=== PATIENT | male | born 1940 | race Caucasian/White ===

== ENCOUNTER → 2023-11-29 16:28 | Outpatient (REF) | payer MEDICARE, SELFPAY | LOC: ANHLAB 16:28 | PROVIDERS: Visit Provider Physician Assistant Surgical | DX: C44.622 Squamous cell carcinoma of skin of right upper limb, including shoulder (principal) | CPT/HCPCS: 88305 ==

== ENCOUNTER → 2024-08-23 14:47 | Outpatient (REF) | payer MEDICARE, SELFPAY | LOC: ANHLAB 14:47 | PROVIDERS: Visit Provider Plastic Surgery | DX: C44.529 Squamous cell carcinoma of skin of other part of trunk (principal) | CPT/HCPCS: 88305 ==

== ENCOUNTER → 2024-09-17 11:11 | Outpatient (REF) | payer MEDICARE, SELFPAY | LOC: ANHLAB 11:11 | PROVIDERS: Visit Provider Plastic Surgery | DX: D48.5 Neoplasm of uncertain behavior of skin (principal) | CPT/HCPCS: 88305; 88342 ==

== ENCOUNTER → 2025-03-19 11:43 | Outpatient (REF) | payer MEDICARE, SELFPAY ==
--- NOTE | 2025-03-19 11:43 | S_PTH ---
PATIENT: Bryn Harrington LOC: [facility] #:[id number] AGE/SX: 85/M ROOM: RE03/19/[address]: Priti Marshall MD : 1940 BED: DIS: SPEC #: [id number] RECD: 03/19/25 12:04 STATUS: RANDALL ZHANG #: [id number] REHAN: 03/19/25 11:[address]: Priti Marshall DEPT: [facility] Surgical RECD BY: Jorge Luis Ignacio ENTERED: 03/19/25 12:05 SP TYPE: Surgical OTHR DR: UNKNOWN,DOCTOR Tissues: A - Skin Procedures: Hematoxylin and Eosin Stain Gross and Microscopic Level 4
--- OUTSIDE RECORDS SUMMARY | 2025-03-19 12:39 | XMS_ITS | Encounter Summary ---
Author Organization [facility] Healthcare Address [address] [place] [address] Care Team Providers Care Car Checker Name Role Phone Terrance Trejo MD Primary Care Provider Martin Montes MD Unavailable [phone] Jered Muñoz MD Unavailable [phone] Encounter Details Date Type Department Care Team (Late st Contact Info) Description 04/01/2022 Telephone [facility] [address] [place] [id number] Minal Larson, MISTY Social History Tobacco Use Types Packs/Day Years Used Date Smoking Tobacco: Some Days Cigars Smokeless Tobacco: Never Comments:3 a day Alcohol Use Standard Drinks/Week Comments Yes 0 (1 standard drink = 0.6 oz pur e alcohol) AUDIT-C Answer Date Recorded Q1: How often do you have a drink containing alc ohol? Never 02/11/2022 Average Number of Drinks Not on file 022 Q3: How often do you have si x or more drinks on one occasion? Never 02/11/2022 PHQ-2 Answer Date Recorded PHQ-2 Total Score (If total score is 3 or more points, staff should administer the PHQ-9) 0 11/10/2021 Sex and Gender Information Value Date Recorded Sex Assigned at Not on file Legal Sex Male 11:51 PM SHAKER TENDER Gender Identity Not on file Sexual Orientation Not on file documented as of this encounter Plan of Treatment Upcoming Encounters Date Type Department Care Team (Late st Contact Info) Description 10/10/2025 11:00 AM SHAKER TENDER Hospital Encounter [facility] [address] [place] [phone] Burton Solis MD [address] [place] [address] [address] [place] [address] 10/10/2025 11:00 AM SHAKER TENDER - 10/10/2025 11:30 AM SHAKER TENDER Surgery [facility] [address] [place] [address] Burton Solis MD [address] [place] [address] [address] [place] [address] COLONOSCOPY Scheduled Procedures Name Priority Associated Diagnoses Date/Ti me COLONOSCOPY History of colonic polyps 10/10/2025 11:00 AM SHAKER TENDER documented as of this encounter Visit Diagnoses Not on filedocumented in this encounter Additional Health Concerns Infection Onset Date Last Indicated Resolved Time COVID: Suspected 12/22/2022 12/22/2022 12/22/2022 12:00 PM CDT COVID: Suspected 12/27/2022 12/27/2022 12/27/2022 1:14 PM CDT documented as of this encounter Care Teams Car Checker Relationship Specialty Start Date End Date Terrance Trejo MD PCP - General 12/31/16 Martin Montes MD [address] [facility] [address] [place], [place] [id number] Clinic Office Coordinator Dermatology 10/30/21 Jered Muñoz MD [address] [place] [id number] Medical Oncologist/Director Sanitation [facility] Hematology and Oncology 02/10/23 documented as of this encounter
--- OUTSIDE RECORDS SUMMARY | 2025-03-19 12:39 | XMS_ITS | Clinical Summary ---
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 06/2021, 12/10/2019, Additional history exists Influenza Vaccine (Season Ended) 2025 Hemoglobin A1C 06/06/2025 12/04/2024, 09/0 03/2024, 03/26/2024, Additional history exists Prostate Cancer Screening-PSA 06/08/2025, 05/25/2023, 05/10/2022, Additional history exists Albumin Creatinine Ratio, Urine 12/04/2025 12/04/2024, 03/26/2024, 12/05/2023, Additional history exists Lipid Panel 12/04/2025 12/04/2024, 09/0 03/2024, 03/26/2024, Additional history exists eGFR 12/04/2025 12/04/2024, 09/02, 06/25/2024, Additional history exists Depression Screening 12/11/2025 12/11/2024, 06/12/2024, 03/26/2024, Additional history exists Fall Risk Assessment 12/11/2025 12/11/2024, 06/12/2024, 03/26/2024, Additional history exists Foot Exam 12/11/2025 12/11/2024, 06/03, 03/26/2024, Additional history exists Well Visit 65+ 12/11/2025 12/11/2024, 04/2024, 05/18/2022, Additional history exists Colon Cancer Screening-CT Colonography Discontinued 03/25/2022, 04/08/2016, 04/08/2016, Additional history exists Colon Cancer Screening-DNA Stool Discontinued 03/25/2022, 10/19/2017, 04/08/2016, Additional history exists Colon Cancer Screening-FIT Discontinued 03/25, 10/19/2017, 04/08/2016, Additional history exists Colon Cancer Screening-Sigmoidoscopy Discontinued 03/25/2022, 04/08/2016, 04/08/2016, Additional history exists Abdominal Aortic Aneurysm (A AA) Screen Completed 07/17/2024, 02/14/2024 Procedures Procedure Name Priority Date/Time Associated Diagnosis Comments CREATININE, WHOLE BLOOD STAT 03/15/2025 1:03 PM CDT EGFR Routine 12/04/2024 9:53 AM TRUST CLERK Type 2 diabetes mellitus with stage 3b chronic kidney disease, with long-term current use of insulin (HCC) HEMOGLOBIN A1C Routine 12/04/2024 9:53 AM TRUST CLERK Type 2 diabetes mellitus with stage 3b chronic kidney disease, with long-term current use of insulin (HCC) LIPID PANEL Routine 12/04/2024 9:53 AM TRUST CLERK Type 2 diabetes mellitus with stage 3b chronic kidney disease, with long-term current use of insulin (HCC) ALBUMIN CREATININE RATIO, URINE Routine 12/04/2024 9:53 AM TRUST CLERK Type 2 diabetes mellitus with stage 3b chronic kidney disease, with long-term current use of insulin (HCC) CT CHEST ABDOMEN PELVIS W CONTRAST Schedule Routine, Read Routine (OP Routine) 07/17/2024 2:11 PM CDT 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) PSA SCREEN Routine 06/08/2024 11:39 AM CDT Mixed hyperlipidemia Urine frequency DIABETIC EYE EXAM Routine 10/12/2023 COLONOSCOPY 03/25/2022 10:05 AM CDT DIABETES FOOT EXAM Routine 09/18/2019 from Last 3 Months or Most Recently Relevant to Health Maintenance Results * (ABNORMAL) Creatinine, whole blood (03/15/2025 1:03 PM CDT) Creatinine, bld 1.95(H) 0.60 - 1.30 mg/dL Blood 03/15/2025 1:03 PM CDT 03/15/2025 1:06 PM CDT us Dipak Funez MD LAB BLOOD ORDERABLES Jahaira l Result [facility] ([place]) 1 [facility] Department [place] [address] * (ABNORMAL) eGFR (12/04/2024 9:53 AM TRUST CLERK) eGFR 34(L) >=60 mL/min/1. 73 m2 Comment: Interpretive Data Reference Interval Normal >/= 90 mL/min/1.73m2 Mildly decreased* 60 - 89 mL/min/1.73m2 Mildly to moderately decreased 45 - 59 mL/min/1.73m2 Moderately to severely decreased 30 - 44 mL/min/1.73m2 Severely decreased 15 - 29 mL/min/1.73m2 Kidney Failure < 15 mL/min/1.73m2 *Relative to young adult level Estimated glomerular filtration rate is determined by the 2020 CKD-EPI equation recommended by the National Kidney Foundation (A Unifying Approach to GFR Estimation: Recommendations of the NKF-ASK Task Force on Reassessing the Inclusion of Race in Diagnosing Kidney Disease, JASN 2020). The CKD-EPI equation should not be used for patients with unstable renal function and has not been validated in children and those over 70. Current interpretive data was last reviewed 2021. Blood 12/04/2024 9:53 AM TRUST CLERK 12/04/2024 10:26 AM TRUST CLERK us Terrance Trejo MD LAB BLOOD ORDERABLES Fi nal Result Performing Organization Address [facility] Co de Phone Number [facility] ([place]) 1 [facility] [place] [address] * Albumin Creatinine Ratio, Urine (12/04/2024 9:53 AM TRUST CLERK) Albumin Ur <12.0 mg/L Comment: Interpretive Data No reference range established. Current interpretive data was last revised 2019. Testing performed by: [address] [address] Creatinine Ur 58.6 mg/dL [facility] ([place]) Comment: Interpretive Data No reference range established. Current interpretive data was last revised 2019. Testing performed by: [address] [address] Albumin Creatinine Ratio, Ur <20 1 - 29 mg/g [facility] ([place] Comment:Testing performed by : [facility], [address] [place] [address]., [address] Urine 12/04/2024 9:53 AM TRUST CLERK 12/04/2024 4:44 PM TRUST CLERK us Terrance Trejo MD LAB URINE ORDERABLES Fi nal Result Performing Organization Address [facility] Co de Phone Number [facility] ([place]) [address] [facility] [address] [place] [address] * (ABNORMAL) Hemoglobin A1c (12/04/2024 9:53 AM TRUST CLERK) Hgb A1C 9.4(H) 4.0 - 5.6 % Estimated Average Glucose 223 mg/dL [facility] ([place]) Comment: The ADA recommends reporting an estimated Average Glucose (eAG) with all Hemoglobin A1c results using the equation derived from a study of 507 normal and diabetic adults. Minority populations were underrepresented and children were not included. (Diabetes Care 31:8596-0761, 2008). The eAG is not equivalent to a fasting glucose. Blood 12/04/2024 9:53 AM TRUST CLERK 12/04/2024 10:26 AM TRUST CLERK us Terrance Trejo MD LAB BLOOD ORDERABLES Fi nal Result [facility] ([place]) 1 [facility] Department [place] [address] * (ABNORMAL) Lipid panel (12/04/2024 9:53 AM TRUST CLERK) Cholesterol 148 30 - 199 mg/dL Comment: Interpretive Data Ages < or = 19 years Acceptable: <170 mg/dL Borderline high: 170-199 mg/dL High: >or= 200 mg/dL Ages > or = 20 years Desirable: <200 mg/dL Borderline high: 200-239 mg/dL High: >or= 240 mg/dL Literature References: 1. Expert Panel on Integrated Guidelines for Cardiovascular Health and Risk Reduction in Children and Adolescents. Pediatrics 2011;128:S213 2. NCEP Expert Panel. Circulation 2004;110:227 Current Interpretive Data was last revised on 2018. Triglycerides 134 <=149 mg/dL [facility] ([place]) Comment: Interpretive Data Ages < or = 9 years Acceptable: <75 mg/dL Borderline high: 75-99 mg/dL High: >or= 100 mg/dL Ages 10 to 20 years Acceptable: <90 mg/dL Borderline high: 90-129 mg/dL High: >or= 130 mg/dL Ages > or = 20 years Desirable: <150 mg/dL Borderline high: 150-199 mg/dL High: 200-499 mg/dL Very high: >or= 499 mg/dL Literature References: 1. Expert Panel on Integrated Guidelines for Cardiovascular Health and Risk Reduction in Children and Adolescents. Pediatrics 2011;128:S213 2. NCEP Expert Panel. Circulation 2004;110:227 Current Interpretive Data was last revised on 2018. HDL 37(L) >=40 mg/dL [facility] ([place]) Comment: Interpretive Data Ages < or = 19 years Acceptable: >45 mg/dL Borderline low: 40-45 mg/dL Low: <40 mg/dL Ages > or = 20 years Desirable: >or= 60 mg/dL Low: <40 mg/dL Literature References: 1. Expert Panel on Integrated Guidelines for Cardiovascular Health and Risk Reduction in Children and Adolescents. Pediatrics 2011;128:S213 2. NCEP Expert Panel. Circulation 2004;110:227 Current Interpretive Data was last revised on 2018. LDL, calculated 87 <=129 mg/dL [facility] ([place]) Comment: Interpretive Data Ages < or = 19 years Acceptable: <110 mg/dL Borderline high: 110-129 mg/dL High: >or= 130 mg/dL Ages > or = 20 years Optimal: <100 mg/dL Near optimal: 100-129 mg/dL Borderline high: 130-159 mg/dL High: >160 mg/dL Calculated using the Keon LDL-C estimating equation. This equation was implemented on 2024. Prior to this date LDL-C was estimated using the Friedewald equation. Literature References: 1. Expert Panel on Integrated Guidelines for Cardiovascular Health and Risk Reduction in Children and Adolescents. Pediatrics 2011;128:S213 2. NCEP Expert Panel. Circulation 2004;110:227 3. Keon Hardy et al. RANI Cardiol. 2019January 31;5(5):540-548. doi: 10.1001/[email or web address].2020.0013 Current Interpretive Data was last revised on 2024. Non-HDL Cholesterol 111 mg/dL [facility] ([place]) Comment: Interpretive Data Ages < or = 19 years Acceptable: <120 mg/dL Borderline high: 120-144 mg/dL High: >145 mg/dL Ages > or = 20 years When triglycerides are >200 mg/dL, Non-HDL cholesterol is a secondary target of therapy with treatment goals that are 30 mg/dL greater than the LDL cholesterol target. Literature References: 1. Expert Panel on Integrated Guidelines for Cardiovascular Health and Risk Reduction in Children and Adolescents. Pediatrics 2011;128:S213 2. NCEP Expert Panel. Circulation 2004;110:227 Current Interpretive Data was last revised on 2018. Chol/HDL ratio 4 [facility] ([place]) Blood 12/04/2024 9:53 AM TRUST CLERK 12/04/2024 10:26 AM TRUST CLERK Narrative [facility] ([place]) - 12/04/2024 11:03 AM TRUST CLERK Has the patient been fasting for 8 hours or more?->Yes us Terrance Trejo MD LAB BLOOD ORDERABLES Fi nal Result [facility] ([place]) 1 [facility] Department [place] [address] * CT chest abdomen pelvis with contrast (07/17/2024 2:11 PM CDT) Anatomical Region Laterality Modality Body N/A Computed Tomogra phy 07/20/2024 2:51 PM CDT Narrative 07/20/2024 2:59 PM CDT EXAM DESCRIPTION: CT CHEST ABDOMEN PELVIS W CONTRAST REASON FOR STUDY: History of Follicular lymphoma to bilateral tonsillar mass, s/p excision. Assess for recurrence or disease progression. 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 Reconstructed coronal and sagittal MPR images reviewed. All images stored on PACS. Automated exposure control was used as a dose optimization technique for this examination. CONTRAST TYPE/DOSE: 75mL of IOVERSOL 350 MG IODINE/ML INTRAVENOUS SYRINGE injected via intravenous COMPARISON: No prior chest CT. Limited correlation with a CT angiogram runoff 02/14/2024. thyroid ultrasound 03/30/2022. FDG PET-CT 03/31/2022. FINDINGS: CHEST LUNGS: Central airways are patent. No suspicious pulmonary nodule or mass. Small area of scarring or atelectasis in the anterolateral left lower lobe. PLEURA: No pleural effusion or pneumothorax. MEDIASTINUM/FARHANA: No mediastinal or hilar mass. There is an extension right posteriorly from the thyroid gland which appears to be an area of nodularity with coarse calcification, 3.1 x 2.1 cm. Please see the previous ultrasound and FNA, with an FNA performed 04/20/2022. HEART: Heart size is normal. No pericardial effusion. VASCULATURE CHEST: The thoracic aorta is nonaneurysmal, ascending thoracic aorta 3.8 cm, descending thoracic aorta 2.5 cm. AXILLA: No axillary lymphadenopathy. CHEST WALL: No chest wall mass or subcutaneous emphysema. HARDWARE/LINES/TUBES: None. MUSCULOSKELETAL CHEST: Bone windows demonstrate no acute or aggressive osseous abnormality. ABDOMEN/PELVIS LIVER: No focal hepatic lesion. The liver size and contour normal. Portal and hepatic veins are patent. GALLBLADDER: No gallstones or overt inflammatory change. BILE DUCTS: No biliary ductal dilation. SPLEEN: Spleen size normal. No focal lesion. PANCREAS: No pancreatic mass or inflammatory change. ADRENALS: Normal KIDNEYS/URINARY TRACT: Mild bilateral perinephric stranding. No renal calculi or hydronephrosis. There is a small lesion from the right kidney anteriorly 0.8 cm 48 Hounsfield units, indeterminate. Continued attention this on follow-up imaging would be recommended. No ureteral calculi. There is mild wall thickening of the urinary bladder. The prostate does impress upon the urinary bladder base. GI: No evidence of bowel obstruction. The terminal ileum is normal. The appendix is normal. The stomach and duodenal are normal. There is no pneumatosis. No abnormal bowel wall thickening. PERITONEUM: No ascites or free air. No mesenteric mass or lymphadenopathy. RETROPERITONEUM: No retroperitoneal mass or lymphadenopathy. REPRODUCTIVE: No significant abnormalities. VASCULATURE ABDOMEN: Abdominal aorta nonaneurysmal. Atheromatous calcification of the abdominal aorta. MUSCULOSKELETAL ABDOMEN PELVIS: Bone windows demonstrate no acute or aggressive osseous abnormality. Mild degenerative change throughout the thoracic and lumbar spine. OTHER: No significant abnormality. IMPRESSION: No evidence of metastatic disease within the chest, abdomen, or pelvis. Indeterminate right renal lesion 0.8 cm, could consider attempted characterization with renal mass protocol MRI although this is likely too small for definitive characterization will likely need continued follow-up imaging. Might consider follow-up imaging in 6 months. Mild wall thickening of the urinary bladder, correlation with urinalysis recommended. Right thyroid nodule 3.1 cm, please see previous thyroid ultrasound and correlate with previous FNA results. THIS IS AN ELECTRONICALLY VERIFIED FINAL REPORT 07/20/2024 2:59 PM - Electronically signed by Maximino Whalen M.D. CH: MELO Report ID: [id number] Reading Location: [id number] Procedure Note Maximino Whalen Jr., MD - 07/20/2024 EXAM DESCRIPTION: CT CHEST ABDOMEN PELVIS W CONTRAST REASON FOR STUDY: History of Follicular lymphoma to bilateral tonsillarmass, s/p excision. Assess for recurrence or disease progression. 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 Reconstructed coronal and sagittalMPR images reviewed. All images stored on PACS. Automated exposure control was used as a dose optimization technique for this examination. CONTRAST TYPE/DOSE: 75mL of IOVERSOL 350 MG IODINE/ML INTRAVENOUS SYRINGE injected via intravenous COMPARISON: No prior chest CT. Limited correlation with a CT angiogramrunoff 02/14/2024. thyroid ultrasound 03/30/2022. FDG PET-CT 03/31/2022. FINDINGS: CHEST LUNGS: Central airways are patent. No suspicious pulmonary nodule ormass. Small area of scarring or atelectasis in the anterolateral left lowerlobe. PLEURA: No pleural effusion or pneumothorax. MEDIASTINUM/FARHANA: No mediastinal or hilar mass. There is an extensionright posteriorly from the thyroid gland which appears to be an area ofnodularity with coarse calcification, 3.1 x 2.1 cm. Please see the previousultrasound and FNA, with an FNA performed 04/20/2022. HEART: Heart size is normal. No pericardial effusion. VASCULATURE CHEST: The thoracic aorta is nonaneurysmal, ascendingthoracic aorta 3.8 cm, descending thoracic aorta 2.5 cm. AXILLA: No axillary lymphadenopathy. CHEST WALL: No chest wall mass or subcutaneous emphysema. HARDWARE/LINES/TUBES: None. MUSCULOSKELETAL CHEST: Bone windows demonstrate no acute or aggressive osseous abnormality. ABDOMEN/PELVIS LIVER: No focal hepatic lesion. The liver size and contour normal.Portal and hepatic veins are patent. GALLBLADDER: No gallstones or overt inflammatory change. BILE DUCTS: No biliary ductal dilation. SPLEEN: Spleen size normal. No focal lesion. PANCREAS: No pancreatic mass or inflammatory change. ADRENALS: Normal KIDNEYS/URINARY TRACT: Mild bilateral perinephric stranding. No renal calculi or hydronephrosis. There is a small lesion from the right kidney anteriorly 0.8 cm 48 Hounsfield units, indeterminate. Continued attention this on follow-up imaging would be recommended. No ureteral calculi.There is mild wall thickening of the urinary bladder. The prostate does impress upon the urinary bladder base. GI: No evidence of bowel obstruction. The terminal ileum is normal.The appendix is normal. The stomach and duodenal are normal. There is no pneumatosis. No abnormal bowel wall thickening. PERITONEUM: No ascites or free air. No mesenteric mass orlymphadenopathy. RETROPERITONEUM: No retroperitoneal mass or lymphadenopathy. REPRODUCTIVE: No significant abnormalities. VASCULATURE ABDOMEN: Abdominal aorta nonaneurysmal. Atheromatous calcification of the abdominal aorta. MUSCULOSKELETAL ABDOMEN PELVIS: Bone windows demonstrate no acute or aggressive osseous abnormality. Mild degenerative change throughout the thoracic and lumbar spine. OTHER: No significant abnormality. IMPRESSION: No evidence of metastatic disease within the chest, abdomen, or pelvis. Indeterminate right renal lesion 0.8 cm, could consider attempted characterization with renal mass protocol MRI although this is likely too small for definitive characterization will likely need continued follow-up imaging. Might consider follow-up imaging in 6 months. Mild wall thickening of the urinary bladder, correlation with urinalysis recommended. Right thyroid nodule 3.1 cm, please see previous thyroid ultrasound and correlate with previous FNA results. THIS IS AN ELECTRONICALLY VERIFIED FINAL REPORT 07/20/2024 2:59 PM - Electronically signed by Maximino Whalen M.D. CH: MELO Report ID: [id number] Reading Location: [id number] Elida Woods NP IMG CT PROCEDURES Final Re sult * PSA screen (06/08/2024 11:39 AM CDT) PSA-Total <0.10 <=6.20 ng/mL Comment: Interpretive Data AGE SEX REFERENCE INTERVAL 0 minutes-150 years Female None 0 minutes-49 years Male None 50-59 years Male 0-3.90 60-69 years Male 0-5.40 70-79 years Male 0-6.20 80-150 years Male 0-6.20 The Majo PSA Total assay procedure was used. Results from different manufacturers or methods may not be comparable. Serial testing should be performed using the same method. Current interpretive data last revised 22. Blood 06/08/2024 11:3 9 AM CDT 06/08/2024 12:17 PM CDT Terrance Trejo MD LAB BLOOD ORDERABLES nal Result [facility] ([place]) 1 [facility] Department of Laboratories [place], [place] [id number] * (ABNORMAL) Diabetic Eye Exam (10/12/2023) 10/12/2023 us Generic External Data Provider HEALTH MAINTENANC E Final Result * COLONOSCOPY (03/25/2022 10:05 AM CDT) Anatomical Region Laterality Modality Other Narrative Procedure Note Lele Villalobos MD - 03/25/2022 10:05 AM CDT [facility] Patient Name: Judd Harrington Procedure Date: 03/25/2022 10:05 AM Date of : 1940 Admit Type: Outpatient Age: 81 Gender: Male Attending MD: Lele Villalobos M.D. Room: [facility] ENDOSCOPY ROOM 2 Note Status: Finalized Patient Profile: Refer to note in patient chart for documentation of history and physical. Procedure: Colonoscopy Indications: Last colonoscopy: April 2016, Abnormal PET scan ofthe GI tract Referring MD: Terrance Trejo M.D. Providers: Lele Villalobos M.D. Impression: - Hemorrhoids found on perianal exam. - Six 4 to 6 mm polyps in the descending colon, inthe transverse colon and in the ascending colon,removed with a cold snare. Resected and retrieved. - Small lipoma in the ascending colon. - The examination was otherwise normal. Recommendation: - Discharge patient to home. - Resume previous diet. - Continue present medications. - Await pathology results. - Repeat colonoscopy in 3 years for surveillance. - Return to primary care physician as previously scheduled. Medicines: Propofol per Anesthesia Complications: No immediate complications. Estimated Blood Loss: Estimated blood loss: none. Procedure: Pre-Anesthesia Assessment: - This assessment was completed [Time ofAssessment] prior to the administration of sedation. The benefits, risks and alternatives of theprocedure and sedation were discussed and informed consentwas obtained. All questions were answered. Please referto the signed informed consent document in the medical record. The bowel preparation used was Miralax via single dose instruction. The bowel preparation used was bisacodyl tablets via single dose instruction.The scope was passed under direct vision. TheColonoscope [id number] was introduced through the anus and advanced to the the cecum, identified by appendiceal orifice and ileocecal valve. The colonoscopy was performed without difficulty. The patient tolerated the procedure well. The qualityof the bowel preparation was good. The ileocecalvalve, appendiceal orifice, and rectum werephotographed. Findings: Hemorrhoids were found on perianal exam. Six sessile polyps were found in the descending colon(2), transverse colon(1) and ascending colon(3). The polyps were 4 to 6 mm in size. These polyps were removed with a cold snare. Resection and retrieval were complete. Verification of patient identification for thespecimen was done by the physician and nurse using the patient's name andbirth date. Estimated blood loss was minimal. There was a small lipoma, in the ascending colon. The exam was otherwise without abnormality. Electronically signed by Lele Villalobos M.D. Lele Villalobos M.D. 03/25/2022 11:49:56 AM Number of Addenda: 0 Note Initiated On: 03/25/2022 10:05 AM Procedure Code(s): --- Professional --- 25915, Colonoscopy, flexible; with removal of tumor(s), polyp(s), or other lesion(s) by snare technique Diagnosis Code(s): --- Professional --- R93.3, Abnormal findings on diagnostic imaging of other parts of digestive tract D17.5, Benign lipomatous neoplasm of intra-abdominal organs D12.2, Benign neoplasm of ascending colon D12.3, Benign neoplasm of transverse colon (hepatic flexure orsplenic flexure) D12.4, Benign neoplasm of descending colon K64.9, Unspecified hemorrhoids CPT copyright 2020 [employer]. All rights reserved. The codes documented in this report are preliminary and upon scalp specialist reviewmay be revised to meet current compliance requirements. Recognized by the [employer] for promoting quality in endoscopy Lele Villalobos MD ENDOSCOPY PROCEDURES Final Re sult * DIABETES FOOT EXAM (09/18/2019) Diabetic Foot Exam Abnormal Historical Provider HEALTH MAINTENANCE Final Result from Last 3 Months or Most Recently Relevant to Health Maintenance Insurance [facility] H[facility]/PPO Address: [address] [address] [place] [address] [employer] MEDICARE MEDICARE [facility] Address: [address] [address] [place] [address] [facility] CHOICE [facility]US [facility] HMO/PPO Address: [address] [address] [place] [address] [facility] MED[facility] Advance Directives For more information, please contact: [phone] * Full Code (Latest Code Status on File) Date Activated Date Inactivated Comments 03/13/2024 7:41 PM 03/14/2024 4:52 PM * Full Code Date Activated Date Inactivated Comments 03/25/2022 9:54 AM 03/25/2022 5:15 PM * Full Code Date Activated Date Inactivated Comments 03/25/2022 9:54 AM 03/25/2022 9:54 AM Care Teams Wool Spotter Relationship Specialty Start Date End Date Terrance Trejo MD PCP - General 12/31/16 Martin Montes MD [address] [facility] Press Operator [place] [facility] 10/30/21 Jered Muñoz MD [address] [place] [address] Medical Oncologist/Grievance Coordinator Hematology and Oncology 02/10/23
--- OUTSIDE RECORDS SUMMARY | 2025-03-19 12:39 | XMS_ITS | Referral Summary ---
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) Discharge Disposition: Discharge to home or self care 03/14/[address] [address] Norma Concetta Jose Rafael 03/12/2025 Telephone [facility] G[facility]enterology at [address] [place] [phone] Yue John from Last 3 Months Allergies No known active allergies Medications multivitamin [...] (03/23/2022): Added automatically from request for surgery [id number] Grade 1 follicular lymphoma of lymph nodes [...] (12/14/2021): Added automatically from request for surgery [id number] Squamous cell carcinoma of right lower leg [...] day Assessment & Plan (11/09/2022 1:33 PM SPORTS ADMINISTRATOR): This is a chronic condition which is [...] CVA,PAD. Assessment & Plan (09/08/2021 1:31 PM SPORTS ADMINISTRATOR): This is a chronic condition which is [...] sugars. Close to goal. Personally reviewed A1c-8.2 (10.07.20). POC A1C machine not functioning. Will wait [...] daily, at goal <30 Personally reviewed labs: (10/07/20) BUN- 22, creatinine- 1.37 GFR- 49 Kidney function- abnormal B/P today- 124/78 , currently on lisinopril 5mg daily, at goal blood pressure is <140/90 and as close to 120/80 as possible. Personally reviewed (10/07/20) LDL - 65, currently on atorvastatin 10 mg daily, at Goal of less than 70 history of macrovascular disease - CVA,PAD. Assessment & Plan (10/30/2020 1:59 PM SPORTS ADMINISTRATOR): This is a chronic condition which is [...] with some relief Continue with exercise at [facility]. history of macrovascular disease - CVA Multiple-type hyperlipidemia 02/16/2014 Overview (01/06/2017): MIXED HYPERLIPIDEMIA Assessment & Plan (11/09/2022 1:34 PM SPORTS ADMINISTRATOR): This is a chronic condition which is [...] day Assessment & Plan (11/09/2022 1:34 PM SPORTS ADMINISTRATOR): This is a chronic condition which is [...] appt. Assessment & Plan (09/08/2021 1:32 PM SPORTS ADMINISTRATOR): This is a chronic condition which is [...] (01/07/2017): DM w/o complication type II, uncontrolled Immunizations Immunization Administration Dates Next Due Influenza, Unspecified 12/11/2024(Deferr ed: Patient Refused),06/12/2024(Deferred: Patient Refused),08/08/2023(Deferred: Patient Refused),07/03/2021(Deferred: Patient Refused),07/03/2020(Deferred: Patient Refused),07/03/2019(Deferred: Patient Refused),07/03/2018(Deferred: Patient Refused) [employer] SARS-CoV-2 Vaccination 12/06/2020 Pneumococcal Conjugate PCV 13 07/03/2020 (Deferred: Patient Refused),04/16/2019(Deferred: Patient Refused) Pneumococcal Polysaccharide PPV23 05/18/2022(Def erred: Patient Refused) Social History Tobacco Use Types Packs/Day Years [...] on file Legal Sex Male 11:51 PM SPORTS ADMINISTRATOR Gender Identity Not on file Sexual Orientation Not on file Last Filed Vital Signs Vital Sign Reading [...] st Contact Info) Description 10/10/2025 11:00 AM SPORTS ADMINISTRATOR Hospital Encounter [address] [address]Burton Chino MD [address] [facility] [place] [address] 10/10/2025 11:00 AM SPORTS ADMINISTRATOR - 10/10/2025 11:30 AM SPORTS ADMINISTRATOR Surgery [address] [address]Burton Chino MD [address] [facility] [place] [address] COLONOSCOPY Scheduled Procedures Name Priority Associated Diagnoses Date/Ti me COLONOSCOPY History of colonic polyps 10/10/2025 11:00 AM SPORTS ADMINISTRATOR Procedures Procedure Name Priority Date/Time Associated Diagnosis Comments CREATININE, WHOLE BLOOD STAT 03/15/2025 1:03 PM CDT EGFR Routine 12/04/2024 9:53 AM SPORTS ADMINISTRATOR Type 2 diabetes mellitus with stage 3b chronic kidney disease, with long-term current use of insulin (HCC) HEMOGLOBIN A1C Routine 12/04/2024 9:53 AM SPORTS ADMINISTRATOR Type 2 diabetes mellitus with stage 3b chronic kidney disease, with long-term current use of insulin (HCC) LIPID PANEL Routine 12/04/2024 9:53 AM SPORTS ADMINISTRATOR Type 2 diabetes mellitus with stage 3b chronic kidney disease, with long-term current use of insulin (HCC) ALBUMIN CREATININE RATIO, URINE Routine 12/04/2024 9:53 AM SPORTS ADMINISTRATOR Type 2 diabetes mellitus with stage 3b [...] LAB BLOOD ORDERABLES Jahaira l Result PRITESH NAS[facility] [place]) 1 [facility] [place] [address] * (ABNORMAL) eGFR (12/04/2024 9:53 AM SPORTS ADMINISTRATOR) eGFR 34(L) >=60 mL/min/1. 73 m2 Comment: [...] last reviewed 2021. Blood 12/04/2024 9:53 AM SPORTS ADMINISTRATOR 12/04/2024 10:26 AM SPORTS ADMINISTRATOR Terrance Trejo MD LAB BLOOD ORDERABLES nal Result PRITESH NASH ([place] 1 [facility] Department [place] [address] * Albumin Creatinine Ratio, Urine (12/04/2024 9:53 AM SPORTS ADMINISTRATOR) Albumin Ur <12.0 mg/L Comment: Interpretive Data No reference range established. Current interpretive data was last revised 2019. Testing performed by: [address] [address] Creatinine Ur 58.6 mg/dL PRITESH NASH ([place]) Comment: Interpretive Data No reference range established. Current interpretive data was last revised 2019. Testing performed by: [address] [address] Albumin Creatinine Ratio, Ur <20 1 - 29 mg/g PRITESH NASH ([place]) Comment:Testing performed by : [address] [address] Urine 12/04/2024 9:53 AM SPORTS ADMINISTRATOR 12/04/2024 4:44 PM SPORTS ADMINISTRATOR Terrance Trejo MD LAB URINE ORDERABLES Fi nal Result Performing Organization Address [facility] Co de Phone Number PRITESH NASH ([place]) 1 [facility] [place] [address] * (ABNORMAL) Hemoglobin A1c (12/04/2024 9:53 AM SPORTS ADMINISTRATOR) Hgb A1C 9.4(H) 4.0 - 5.6 % Estimated Average Glucose 223 mg/dL [facility]IT[facility] ([place]) Comment: The ADA recommends reporting an estimated Average Glucose (eAG) with all Hemoglobin A1c results using the equation derived from a study of 507 normal and diabetic adults. Minority populations were underrepresented and children were not included. (Diabetes Care 31:8581-8522, 2008). The eAG is not equivalent to a fasting glucose. Blood 12/04/2024 9:53 AM SPORTS ADMINISTRATOR 12/04/2024 10:26 AM SPORTS ADMINISTRATOR Terrance Trejo MD LAB BLOOD ORDERABLES Fi nal Result Performing Organization Address [facility] de Phone Number PRITESH NASH ([place]) [address] [place] [address] * (ABNORMAL) Lipid panel (12/04/2024 9:53 AM SPORTS ADMINISTRATOR) Cholesterol 148 30 - 199 mg/dL Comment: [...] on 2018. Triglycerides 134 <=149 mg/dL PRIT[facility] ([place]) Comment: Interpretive Data Ages < or [...] NCEP Expert Panel. Circulation 2004;110:227 3. Keon Rodriguez al. RANI Cardiol. 2020 January 31;5(5):540-548. doi: 10.1001/jamacardio.2020.0013 Current Interpretive Data was last revised on 2024. Non-HDL Cholesterol 111 mg/dL [facility] ([place]) Comment: Interpretive Data Ages < or [...] last revised on 2018. Chol/HDL ratio 4 [facility]ERMIRTHA Elise [facility] ([place]) Blood 12/04/2024 9:53 AM SPORTS ADMINISTRATOR 12/04/2024 10:26 AM SPORTS ADMINISTRATOR Narrative PRITESH NASH ([place]) - 12/04/2024 11:03 AM SPORTS ADMINISTRATOR Has the patient been fasting for 8 hours or more?->Yes Terrance Trejo MD LAB BLOOD ORDERABLES Fi nal Result PRITESH NASH ([place]) 1 [facility] Department of Laboratories [place], [place] [id number] * CT chest abdomen pelvis with contrast [...] Electronically signed by Maximino Whalen M.D. CH: Report ID: [id number] Reading Location: [id number] Procedure Note Maximino Whalen Jr., MD - [...] Electronically signed by Maximino Whalen M.D. CH: Report ID: [id number] Reading Location: [id number] us [place] HAIR CLIPPER POWER IMG CT PROCEDURES Final Re sult * [...] 9 AM CDT 06/08/2024 12:17 PM CDT us Terrance Trejo MD LAB BLOOD ORDERABLES Fi nal Result [facility] ([place]) 5 [facility] [place] [address] * (ABNORMAL) Diabetic Eye Exam (10/12/2023) 10/12/2023 us Generic External Data Provider HEALTH MAINTENANC E Final Result * COLONOSCOPY (03/25/2022 10:05 AM CDT) Anatomical Region Laterality Modality Other Narrative Procedure Note Lele Villalobos MD - 03/25/2022 10:05 AM CDT [facility] Patient Name: Judd Harrington Procedure Date: 03/25/2022 10:05 AM Date of : 1940 Admit Type: Outpatient Age: 81 Gender: Male Attending MD: Lele Villalobos M.D. Room: [facility] ENDOSCOPY ROOM 2 Note Status: Finalized Patient [...] scope was passed under direct vision. TheColonoscope [id number] was introduced through the anus and advanced [...] 10:05 AM Procedure Code(s): --- Professional --- 37969, Colonoscopy, flexible; with removal of tumor(s), polyp(s), [...] colon K64.9, Unspecified hemorrhoids CPT copyright 2020 [employer]. All rights reserved. The codes documented in this report are preliminary and upon primer powder blender wet reviewmay be revised to meet current compliance requirements. Recognized by the [employer] [place] for promoting quality in endoscopy Lele Villalobos MD ENDOSCOPY PROCEDURES Final Re sult * DIABETES FOOT EXAM (09/18/2019) Diabetic Foot Exam Abnormal Historical Provider MD HEALTH MAINTENANCE Final Result from Last 3 Months or Most Recently Relevant to Health Maintenance Insurance [facility] AETNA MEDICARE [facility] PLUS [facility] MEDICARE Advance Directives For more information, please contact: [phone] * Full Code (Latest Code Status on File) Date Activated Date Inactivated Comments 03/13/2024 7:41 PM 03/14/2024 4:52 PM * Full Code Date Activated Date Inactivated Comments 03/25/2022 9:54 AM 03/25/2022 5:15 PM * Full Code Date Activated Date Inactivated Comments 03/25/2022 9:54 AM 03/25/2022 9:54 AM Care Teams Cook Barbecue Relationship Specialty Start Date End Date Terrance Trejo MD PCP - General 12/31/16 Martin Montes MD [address] [place] [address] Policy And Planning Manager Dermatology 10/30/21 Jered Muñoz MD [address] [place] [address] Medical Oncologist/Straight Slicing Machine Operator Hematology and Oncology 02/10/23
--- OUTSIDE RECORDS SUMMARY | 2025-03-19 12:39 | XMS_ITS | Encounter Summary ---
Author Organization [facility] Address [address] [place] [address] Phone Care Team Providers Care Chief Arson Division Name Role Phone Terrance Trejo MD Primary Care Provider George Blackwell LPN Unavailable Unavail able Martin Montes MD Unavailable [phone] Jered Muñoz MD Unavailable [phone] Encounter Details Date Type Department Care Team (Late st Contact Info) Description 09/16/2017 Orders Only [facility] ProviderTherese MD [address] [place], [place] [id number] Social History Tobacco Use Types Packs/Day Years Used Date Smoking Tobacco: Smoker, Current Status Unknown Alcohol Use Standard Drinks/Week Comments Yes 0 (1 standard drink = 0.6 oz pur e alcohol) Sex and Gender Information Value Date Recorded Sex Assigned at Not on file Legal Sex Male 11:51 PM OIL HEAT TECHNICIAN Gender Identity Not on file Sexual Orientation Not on file documented as of this encounter Plan of Treatment Upcoming Encounters Date Type Department Care Team (Late st Contact Info) Description 10/10/2025 11:00 AM OIL HEAT TECHNICIAN Hospital Encounter [address] [address] Burton Solis MD [address] [place] [address] [place] [address] 10/10/2025 11:00 AM OIL HEAT TECHNICIAN - 10/10/2025 11:30 AM OIL HEAT TECHNICIAN Surgery [address] [address] Burton Solis MD [address] [place] [address] [address] [place] [address] COLONOSCOPY Scheduled Procedures Name Priority Associated Diagnoses Date/Ti me COLONOSCOPY History of colonic polyps 10/10/2025 11:00 AM OIL HEAT TECHNICIAN documented as of this encounter Procedures Procedure Name Priority Date/Time Associated Diagnosis Comments DISCHARGE LABORATORY CUMULATIVE REPORT 09/16/2017 12:00 AM OIL HEAT TECHNICIAN documented in this encounter Results * DISCHARGE LABORATORY CUMULATIVE REPORT (09/16/2017 12:00 AM OIL HEAT TECHNICIAN) Narrative 09/16/2017 12:00 AM OIL HEAT TECHNICIAN Ordered by an unspecified provider. us Historical Provider LAB BLOOD ORDERABLES Jahaira l Result documented in this encounter Visit Diagnoses Not on filedocumented in this encounter Additional Health Concerns Infection Onset Date Last Indicated Resolved Time COVID: Suspected 12/22/2022 12/22/2022 12/22/2022 12:00 PM CDT COVID: Suspected 12/27/2022 12/27/2022 12/27/2022 1:14 PM CDT documented as of this encounter Care Teams Chief Arson Division Relationship Specialty Start Date End Date Terrance Trejo MD PCP - General 12/31/16 George Blackwell LPN Care Manager 12/21/17 12/27/17 Martin Montes MD [address] [facility] [place] [phone] Blowing Engineer Dermatology 10/30/21 Jered Muñoz MD [address] [facility] [place] [phone] Medical Oncologist/Tool Salvage Worker Hematology and Oncology 02/10/23 documented as of this encounter
--- OUTSIDE RECORDS SUMMARY | 2025-03-19 12:39 | XMS_ITS | Encounter Summary ---
Author Organization [facility] Address [address] [place] [address] Care Team Providers Care Director Corporate Compliance Name Role Phone Terrance Trejo MD Primary Care Provider Martin Montes MD Unavailable [phone] Jered Muñoz MD Unavailable [phone] Encounter Details Date Type Department Care Team (Late st Contact Info) Description 04/02/2022 Telephone [facility] [address] [place] [address] Minal Larson, MISTY Social History Tobacco Use [...] on file Legal Sex Male 11:51 PM BATH MIXER Gender Identity Not on file Sexual Orientation Not on file documented as of this encounter Plan of Treatment Upcoming Encounters Date Type Department Care Team (Late st Contact Info) Description 10/10/2025 11:00 AM BATH MIXER Hospital Encounter [facility] [address] [place] [address] Burton Solis MD [address] [place] [address] [address] [place] [address] 10/10/2025 11:00 AM BATH MIXER - 10/10/2025 11:30 AM BATH MIXER Surgery [facility] Digestive [facility] Center [address] [place] [address] Burton Solis MD [address] [place] [address] [address] [place] [address] COLONOSCOPY Scheduled Procedures Name Priority Associated Diagnoses Date/Ti me COLONOSCOPY History of colonic polyps 10/10/2025 11:00 AM BATH MIXER documented as of this encounter Visit Diagnoses Not on filedocumented in this encounter Additional Health Concerns Infection Onset Date Last Indicated Resolved Time COVID: Suspected 12/22/2022 12/22/2022 12/22/2022 12:00 PM CDT COVID: Suspected 12/27/2022 12/27/2022 12/27/2022 1:14 PM CDT documented as of this encounter Care Teams Director Corporate Compliance Relationship Specialty Start Date End Date Terrance Trejo MD PCP - General 12/31/16 Martin Montes MD [address] [facility] [address] [place], [place] [phone] Cracker Sprayer Dermatology 10/30/21 Jered Muñoz MD [address] [facility] [place] [phone] Medical Oncologist/Rf Microwave Engineer Hematology and Oncology 02/10/23 documented as of this encounter
== END ==
LOC: ANHLAB 11:43
PROVIDERS: Visit Provider Plastic Surgery
DX: C44.629 Squamous cell carcinoma of skin of left upper limb, including shoulder (principal)
CPT/HCPCS: 88305

== ENCOUNTER → 2025-04-02 15:35 | Outpatient (REF) | payer MEDICARE, SELFPAY ==
--- NOTE | 2025-04-02 15:35 | S_PTH ---
PATIENT: Bryn Harrington LOC: ANHLAB #:[id number] AGE/SX: 85/M ROOM: RE04/02/[address]: Priti Marshall MD : 1940 BED: DIS: SPEC #: [id number] RECD: 04/03/25 06:29 STATUS: RANDALL ZHANG #: [id number] REHAN: 04/02/25 15:[address]: Priti Marshall DEPT: [facility] Surgical RECD BY: Geovanna Sandoval ENTERED: 04/03/25 06:29 SP TYPE: Surgical OTHR DR: UNKNOWN,DOCTOR Tissues: A - Skin Procedures: Hematoxylin and Eosin Stain Gross and Microscopic Level 4
--- OUTSIDE RECORDS SUMMARY | 2025-04-02 15:37 | XMS_ITS | Referral Summary ---
Author Organization [facility] Address [address] [place] [address] Care Team Providers Care Clinical Trials Nurse Name Role Phone Terrance Trejo MD Primary Care Provider Martin Montes MD Unavailable [phone] Jered Muñoz MD Unavailable [phone] Encounters Date Type Department Care Team Description 03/21/2025 2:15 PM CDT Lab [facility] [place] [address] 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) Discharge Disposition: Discharge to home or self care 03/14/[address] [address] Concetta [place] 03/12/2025 Telephone [facility] Gastroenterology at [address] [place] [address] Yue John from Last 3 Months Allergies [...] (03/23/2022): Added automatically from request for surgery [id number] Grade 1 follicular lymphoma of lymph nodes [...] (12/14/2021): Added automatically from request for surgery [id number] Squamous cell carcinoma of right lower leg [...] day Assessment & Plan (11/09/2022 1:33 PM WEB SITE SPECIALIST): This is a chronic condition which is [...] CVA,PAD. Assessment & Plan (09/08/2021 1:31 PM WEB SITE SPECIALIST): This is a chronic condition which is [...] CVA,PAD. Assessment & Plan (10/30/2020 1:59 PM WEB SITE SPECIALIST): This is a chronic condition which is [...] with some relief Continue with exercise at [facility]. 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 See Poloititian. Please take medications as prescribed. Continue on [...] day Assessment & Plan (11/09/2022 1:34 PM WEB SITE SPECIALIST): This is a chronic condition which is [...] appt. Assessment & Plan (09/08/2021 1:32 PM WEB SITE SPECIALIST): This is a chronic condition which is [...] Refused),07/03/2020(Deferred: Patient Refused),07/03/2019(Deferred: Patient Refused),07/03/2018(Deferred: Patient Refused) Section 101 (J&J) SARS-CoV-2 Vaccination 12/06/2020 Pneumococcal Conjugate PCV [...] on file Legal Sex Male 11:51 PM WEB SITE SPECIALIST Gender Identity Not on file Sexual Orientation Not on file Last Filed Vital Signs Vital Sign Reading Time Taken Comments Blood Pressure 144/78 03/21/2025 2:09 PM CDT Pulse 82 03/21/2025 2:09 PM CDT Temperature 36.3 C (97.3 F) 03/21/2025 2:09 PM CDT Respiratory Rate 20 03/21/2025 2:09 PM CDT Oxygen Saturation 95% 03/21/2025 2:09 PM CDT Inhaled Oxygen Concentration - - Weight 99 kg (218 lb 3.2 oz) 03/21/2025 2:09 PM CDT Height 177.8 cm (5' 10) 03/21/2025 2:09 PM CDT Body Mass Index 31.31 03/21/2025 2:09 PM CDT Plan of Treatment Upcoming Encounters Date Type Department Care Team (Late st Contact Info) Description 10/10/2025 11:00 AM WEB SITE SPECIALIST Hospital Encounter [address] [phone] Chino MD [address] [place] [address] 10/10/2025 11:00 AM WEB SITE SPECIALIST - 10/10/2025 11:30 AM WEB SITE SPECIALIST Surgery 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) CBC WITH AUTO DIFFERENTIAL Routine 03/21/2025 2:00 PM CDT 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) COMPREHENSIVE METABOLIC PANEL Routine 03/21/2025 2:00 PM CDT 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) LACTATE DEHYDROGENASE Routine 03/21/2025 2:00 PM CDT 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) CT CHEST ABDOMEN PELVIS W CONTRAST Schedule Routine, Read Routine (OP Routine) 03/15/2025 2:05 PM CDT 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) CREATININE, WHOLE BLOOD STAT 03/15/2025 1:03 PM CDT HEMOGLOBIN A1C Routine 12/04/2024 9:53 AM WEB SITE SPECIALIST Type 2 diabetes mellitus with stage 3b chronic kidney disease, with long-term current use of insulin (HCC) LIPID PANEL Routine 12/04/2024 9:53 AM WEB SITE SPECIALIST Type 2 diabetes mellitus with stage 3b chronic kidney disease, with long-term current use of insulin (HCC) ALBUMIN CREATININE RATIO, URINE Routine 12/04/2024 9:53 AM WEB SITE SPECIALIST Type 2 diabetes mellitus with stage 3b chronic kidney disease, with long-term current use of insulin (HCC) PSA SCREEN Routine 06/08/2024 11:39 AM CDT Mixed hyperlipidemia Urine frequency DIABETIC EYE EXAM Routine 10/12/2023 COLONOSCOPY 03/25/2022 10:05 AM CDT DIABETES FOOT EXAM Routine 09/18/2019 from Last 3 Months or Most Recently Relevant to Health Maintenance Results * (ABNORMAL) eGFR (03/21/2025 2:00 PM CDT) eGFR 39(L) >=60 mL/min/1. 73 m2 Comment: Interpretive Data [...] Current interpretive data was last reviewed 2021. Testing performed by: [facility], [address] [facility], [place], [address] Blood 03/21/2025 2:00 PM CDT 03/21/2025 2:16 PM CDT us Dipak Funez MD LAB BLOOD ORDERABLES Jahaira l Result PRITESH NASH ([place]) [address] [facility] Department [place] [address] * Differential, auto (03/21/2025 2:00 PM CDT) Neutrophil abs 4.11 1.50 - 6.50 K/cumm PRITESH [facility] ([place]) Comment:Testing performed by : [facility] [place], [address] [facility] , Medical Office [address], [place] [address] Imm gran abs 0.01 0.00 - 0.10 K/cumm [facility] ([place]) Comment:Testing performed by : [facility] [address], Medical Office [facility] [address], [place] [address] Lymphocyte abs 1.11 0.80 - 3.30 K/cumm [facility] ([place]) Comment:Testing performed by : [facility] [address], Medical Office [facility] [address], [place] [address] Monocyte abs 0.46 0.20 - 0.80 K/cumm [facility] ([place]) Comment:Testing performed by : [facility] [address], Medical Office [facility] [address], [place] [address] Eosinophil abs 0.07 0.00 - 0.50 K/cumm [facility] ([place]) Comment:Testing performed by : [facility] [address], Medical Office [facility] B [facility] 132, [place] [address] Basophil abs 0.02 0.00 - 0.10 K/cumm [facility] ([place]) Comment:Testing performed by : [facility] [address], Medical Office [facility] B [facility] 132, [place] [address] Neutrophil pct 71.1 % [facility] ([place]) Comment: Interpretive Data Percent cell count reference ranges are not reported, since discordance with absolute values may lead to misinterpretation of CBC data. Current Interpretive Data was last revised on 2022. Testing performed by: [facility] [address], Medical Office [facility] B [facility] 132, [place] [address] Imm gran pct 0.2 % [facility] ([place]) Comment: Interpretive Data Percent cell count reference ranges are not reported, since discordance with absolute values may lead to misinterpretation of CBC data. Current Interpretive Data was last revised on 2022. Testing performed by: [facility] [address], Medical Office [facility] [address], [place] [address] Lymphocyte pct 19.2 % [facility] ([place]) Comment: Interpretive Data Percent cell count reference ranges are not reported, since discordance with absolute values may lead to misinterpretation of CBC data. Current Interpretive Data was last revised on 2022. Testing performed by: [facility] [address], Medical Office [facility] 132, [place] [address] Monocyte pct 8.0 % [facility] ([place]) Comment: Interpretive Data Percent cell count reference ranges are not reported, since discordance with absolute values may lead to misinterpretation of CBC data. Current Interpretive Data was last revised on 2022. Testing performed by: [facility] [address], Medical Office [facility] [address], [place] [address] Eosinophil pct 1.2 % COLBY [facility] ([place]) Comment: Interpretive Data Percent cell count reference ranges are not reported, since discordance with absolute values may lead to misinterpretation of CBC data. Current Interpretive Data was last revised on 2022. Testing performed by: [facility] [address], Medical Office [facility] [address], [place] [address] Basophil pct 0.3 % PR[facility] ([place]) Comment: Interpretive Data Percent cell count reference ranges are not reported, since discordance with absolute values may lead to misinterpretation of CBC data. Current Interpretive Data was last revised on 2022. Testing performed by: [facility] [address], Medical Office [facility] [address], [place] [address] Blood 03/21/2025 2:00 PM CDT 03/21/2025 2:04 PM CDT Dipak Funez MD LAB BLOOD ORDERABLES Jahaira l Result PRITESH NAS[facility] ([place]) [address] [facility] [place] [address] * (ABNORMAL) CBC with auto differential (03/21/2025 2:00 PM CDT) WBC 5.78 3.80 - 9.90 K/cumm PRITESH [facility] ([place]) Comment:Testing performed by : [facility] [address], Medical Office [facility] B [facility] [address], [place] [address] Hgb 12.7(L) 13.0 - 17.5 g/dL [facility] ([place]) Comment:Testing performed by : [facility] [address], Medical Office [facility] [address], [place] [address] Hct 38.9 38.9 - 50.3 % [facility] ([place]) Comment:Testing performed by : [facility] [address], Medical Office [address], [place] [address] Plt 216 150 - 400 K/cumm [facility] ([place]) Comment:Testing performed by : [facility] [address], Medical Office [facility] [address], [place] [address] MPV 10.9 9.1 - 12.3 fL [facility] ([place]) Comment:Testing performed by : [facility] [address], Medical Office [facility] [address], [place] [address] RBC 4.15(L) 4.30 - 5.80 M/cumm [facility] ([place]) Comment:Testing performed by : [facility] [address], Medical Office [facility] [address], [place] [address] MCV 93.7 81.3 - 96.4 fL [facility] ([place]) Comment:Testing performed by : [facility] [address], Medical Office [facility] [address], [place] [address] MCH 30.6 27.1 - 33.3 pg [facility] ([place]) Comment:Testing performed by : [facility] [address], Medical Office [facility] [address], [place] [address] MCHC 32.6 32.3 - 35.7 g/dL [facility] ([place]) Comment:Testing performed by : [facility] [address], Medical Office [facility] [address], [place] [address] RDW CV 12.2 11.1 - 14.9 % [facility] ([place]) Comment:Testing performed by : [facility] [address], Medical Office [address], [place] [address] RDW SD 42.6 35.7 - 48.1 fL [facility] ([place]) Comment:Testing performed by : [facility] [address], Medical Office [facility] [address], [place] [address] Blood 03/21/2025 2:00 PM CDT 03/21/2025 2:04 PM CDT us Dipak Funez MD LAB BLOOD ORDERABLES Jahaira l Result Performing Organization Address City/[facility]/ZIP Co de Phone Number PRITESH NASH ([place]) [address] [facility] Department [place] [address] * Lactate dehydrogenase (LD) (03/21/2025 2:00 PM CDT) Lactate dehydrogenase (LDH) 121 100 - 250 Units/L Comment:Testing performed by : [place], [address] Blood 03/21/2025 2:00 PM CDT 03/21/2025 2:16 PM CDT us Dipak Funez MD LAB BLOOD ORDERABLES Jahaira l Result Performing Organization Address [facility] Co de Phone Number [facility] ([place]) [address] [facility] Department [place] [address] * (ABNORMAL) Comprehensive metabolic panel (03/21/2025 2:00 PM CDT) Sodium 134(L) 135 - 145 mmol/L Comment:Testing performed by : [place], [address] Potassium, pl 5.0(H) 3.3 - 4.9 mmol/L [facility] ([place]) Comment:Testing performed by : [place], [address] Chloride 98 97 - 110 mmol/L [facility] ([place]) Comment:Testing performed by : [place], [address] CO2 24 22 - 32 mmol/L [facility] ([place]) Comment:Testing performed by : [facility], [place], [address] Anion gap 13 2 - 15 mmol/L [facility] ([place]) Comment:Testing performed by : [place], [address] BUN 37(H) 6 - 25 mg/dL [facility] ([place]) Comment:Testing performed by : [facility], [place], [address] Creatinine 1.73(H) 0.80 - 1.30 mg/dL [facility] ([place]) Comment:Testing performed by : [facility], [place], [address] Glucose 365(H) 70 - 199 mg/dL [facility] ([place]) Comment: Interpretive Data Fasting glucose >/= 126 mg/dl is diagnostic for diabetes. Fasting is defined as no caloric intake for at least 8 hours. Fasting glucose between 100 mg/dl to 125 mg/dl is diagnostic of prediabetes. In a patient with classic symptoms of hyperglycemia or hyperglycemic crisis, a random glucose >/= 200 mg/dl is diagnostic for diabetes. In the absence of unequivocal hyperglycemia, results should be confirmed by repeat testing. The classification and Diagnosis of Diabetes Diabetes Care 2021; 46: S19-S40. Current interpretive data was last revised 2022. Testing performed by: [facility], [place], [address] Calcium 8.5 8.5 - 10.3 mg/dL [facility] ([place]) Comment:Testing performed by : [facility], [place], [address] Bilirubin, total 0.3 0.1 - 1.2 mg/dL [facility] ([place]) Comment:Testing performed by : [place], [address] Protein, pl 6.2(L) 6.5 - 8.5 g/dL [facility] ([place]) Comment:Testing performed by : [facility], [place], [address] Albumin 3.5 3.5 - 5.0 g/dL [facility] ([place]) Comment:Testing performed by : [place], [address] Alk phos 82 40 - 130 Units/L [facility] ([place]) Comment:Testing performed by : [facility], [place], [address] ALT 9 7 - 55 Units/L [facility] ([place]) Comment:Testing performed by : [facility], [place], [address] AST 7(L) 10 - 50 Units/L [facility] ([place]) Comment:Testing performed by : [facility], [facility], [place], [address] Blood 03/21/2025 2:00 PM CDT 03/21/2025 2:16 PM CDT us Dipak Funez MD LAB BLOOD ORDERABLES Jahaira l Result PRITESH [facility] ([place]) [address] [facility] Department [place] [address] * CT Chest Abdomen Pelvis W Contrast (03/15/2025 2:05 PM CDT) Anatomical Region Laterality Modality Body N/A Computed Tomogra phy 03/21/2025 6:51 AM CDT Narrative 03/21/2025 7:06 AM CDT EXAM DESCRIPTION: CT CHEST ABDOMEN PELVIS W CONTRAST REASON FOR STUDY: Follow up follicular lymphoma, follow up follicular lymphoma F/u follicular lymphoma. Hx tracheostomy tube placement age 6 months, vocal cord removed. TECHNIQUE: CT scan of the chest, abdomen, and pelvis performed with intravenous and without oral contrast using helical scanning technique with dynamic intravenous contrast injection. Reconstructed coronal and sagittal MPR images reviewed. All images stored on PACS. Automated exposure control was used as a dose optimization technique for this examination. CONTRAST TYPE/DOSE: 75 ML of IOVERSOL 350 MG IODINE/ML INTRAVENOUS SYRINGE injected via intravenous COMPARISON: 07/17/2024 FINDINGS: CHEST LUNGS: No nodules or masses. No pneumonia. PLEURA: No effusion. No pneumothorax. MEDIASTINUM/FARHANA: Enlarged and lobular right lobe of thyroid redemonstrated and generally unchanged. Please correlate with prior thyroid ultrasound and biopsy results. HEART: Heart size is normal. No pericardial effusion. Coronary arterial calcifications are present. VASCULATURE CHEST: No thoracic aortic aneurysm or dissection. AXILLA: No adenopathy. CHEST WALL: No masses. No subcutaneous air. HARDWARE/LINES/TUBES: None. MUSCULOSKELETAL CHEST: No significant abnormality. ABDOMEN/PELVIS LIVER: Normal size. No identified cystic or solid masses. GALLBLADDER: Normally distended BILE DUCTS: No intrahepatic or extrahepatic ductal dilatation. SPLEEN: Normal size. No focal lesions. PANCREAS: No identified cystic or solid masses. No significant calcifications. No adjacent inflammation or peripancreatic fluid collections. Pancreatic duct not dilated. ADRENALS: Normal. KIDNEYS/URINARY TRACT: No identified significant cystic or solid masses. No visualized stones. No hydronephrosis or hydroureter. Symmetric enhancement. Urinary bladder is unremarkable. GI: No dilated bowel loops. No obvious wall thickening. Normal appendix. No significant diverticular disease. PERITONEUM: No ascites or free air. RETROPERITONEUM: No mass or adenopathy. REPRODUCTIVE: No significant abnormality. VASCULATURE ABDOMEN: No abdominal aortic aneurysm. MUSCULOSKELETAL ABDOMEN PELVIS: No acute finding. OTHER: No significant abnormality. IMPRESSION: No acute abnormality. THIS IS AN ELECTRONICALLY VERIFIED FINAL REPORT 03/21/2025 7:06 AM - Electronically signed by Dipak Hurtado M.D. RB: JORGE Report ID: [id number] Reading Location: [id number] Procedure Note Dipak Hurtado MD - 03/21/2025 EXAM DESCRIPTION: CT CHEST ABDOMEN PELVIS W CONTRAST REASON FOR STUDY: Follow up follicular lymphoma, follow up follicularlymphoma F/u follicular lymphoma. Hx tracheostomy tube placement age 6 months,vocal cord removed. TECHNIQUE: CT scan of the chest, abdomen, and pelvis performed with intravenous and without oral contrast using helical scanning techniquewith dynamic intravenous contrast injection. Reconstructed coronal and sagittalMPR images reviewed. All images stored on PACS. Automated exposure control was used as a dose optimization technique for this examination. CONTRAST TYPE/DOSE: 75 ML of IOVERSOL 350 MG IODINE/ML INTRAVENOUS SYRINGE injected via intravenous COMPARISON: 07/17/2024 FINDINGS: CHEST LUNGS: No nodules or masses. No pneumonia. PLEURA: No effusion. No pneumothorax. MEDIASTINUM/FARHANA: Enlarged and lobular right lobe of thyroidredemonstrated and generally unchanged. Please correlate with prior thyroid ultrasoundand biopsy results. HEART: Heart size is normal. No pericardial effusion. Coronaryarterial calcifications are present. VASCULATURE CHEST: No thoracic aortic aneurysm or dissection. AXILLA: No adenopathy. CHEST WALL: No masses. No subcutaneous air. HARDWARE/LINES/TUBES: None. MUSCULOSKELETAL CHEST: No significant abnormality. ABDOMEN/PELVIS LIVER: Normal size. No identified cystic or solid masses. GALLBLADDER: Normally distended BILE DUCTS: No intrahepatic or extrahepatic ductal dilatation. SPLEEN: Normal size. No focal lesions. PANCREAS: No identified cystic or solid masses. No significant calcifications. No adjacent inflammation or peripancreatic fluidcollections. Pancreatic duct not dilated. ADRENALS: Normal. KIDNEYS/URINARY TRACT: No identified significant cystic or solid masses.No visualized stones. No hydronephrosis or hydroureter. Symmetricenhancement. Urinary bladder is unremarkable. GI: No dilated bowel loops. No obvious wall thickening. Normalappendix. No significant diverticular disease. PERITONEUM: No ascites or free air. RETROPERITONEUM: No mass or adenopathy. REPRODUCTIVE: No significant abnormality. VASCULATURE ABDOMEN: No abdominal aortic aneurysm. MUSCULOSKELETAL ABDOMEN PELVIS: No acute finding. OTHER: No significant abnormality. IMPRESSION: No acute abnormality. THIS IS AN ELECTRONICALLY VERIFIED FINAL REPORT 03/21/2025 7:06 AM - Electronically signed by Dipak Hurtado M.D. RB: JORGE Report ID: [id number] Reading Location: [place] [address] Diapk Funez MD IMG CT PROCEDURES Final R esult * (ABNORMAL) Creatinine, whole blood (03/15/2025 1:03 PM CDT) Pathologist [facility] Creatinine, bld 1.95(H) 0.60 - 1.30 mg/dL Blood 03/15/2025 1:03 PM CDT 03/15/2025 1:06 PM CDT us Dipak Funez MD LAB BLOOD ORDERABLES Jahaira nicholson Result PRITESH [facility]H [place] [address] [facility] Department [place] [address] * Albumin Creatinine Ratio, Urine (12/04/2024 9:53 AM WEB SITE SPECIALIST) Pathologist [facility] Albumin Ur <12.0 mg/L Comment: Interpretive Data No reference range established. Current interpretive data was last revised 2019. Testing performed by: [facility], [address] [place] [address]., [id number] Creatinine Ur 58.6 mg/dL PRITESH NASH ([place]) Comment: Interpretive Data No reference range established. Current interpretive data was last revised 2019. Testing performed by: [facility], [address] [place] [address]., [id number] Albumin Creatinine Ratio, Ur <20 1 - 29 mg/g PRITESH NASH ([place]) Comment:Testing performed by : [facility], [address] [place] [address]., [id number] Urine 12/04/2024 9:53 AM WEB SITE SPECIALIST 12/04/2024 4:44 PM WEB SITE SPECIALIST Terrance Trejo MD LAB URINE ORDERABLES Fi nal Result Performing Organization Address [facility] Co de Phone Number PRITESH NASH ([place]) 1 [facility] [place] [address] * (ABNORMAL) Hemoglobin A1c (12/04/2024 9:53 AM WEB SITE SPECIALIST) Hgb A1C 9.4(H) 4.0 - 5.6 % Estimated Average Glucose 223 mg/dL PRITESH [facility] ([place]) Comment: The ADA recommends reporting an estimated Average Glucose (eAG) with all Hemoglobin A1c results using the equation derived from a study of 507 normal and diabetic adults. Minority populations were underrepresented and children were not included. (Diabetes Care 31:6800-4519, 2008). The eAG is not equivalent to a fasting glucose. Blood 12/04/2024 9:53 AM WEB SITE SPECIALIST 12/04/2024 10:26 AM WEB SITE SPECIALIST Terrance Trejo MD LAB BLOOD ORDERABLES Fi nal Result Performing Organization Address City/[facility]/ZIP Co de Phone Number PRITESH SAAD ([place]) 1 [facility] [place] [address] * (ABNORMAL) Lipid panel (12/04/2024 9:53 AM WEB SITE SPECIALIST) Cholesterol 148 30 - 199 mg/dL Comment: [...] on 2018. Triglycerides 134 <=149 mg/dL [facility] ([place]) Comment: Interpretive Data Ages < [...] on 2018. HDL 37(L) >=40 mg/dL PRITESH [facility] ([place]) Comment: Interpretive Data Ages < or [...] 2018. LDL, calculated 87 <=129 mg/dL [facility] ([place]) Comment: Interpretive Data Ages < [...] on 2024. Non-HDL Cholesterol 111 mg/dL PRITESH BARNETT) Comment: Interpretive Data Ages < or = [...] COLBY NASH ([place]) Blood 12/04/2024 9:53 AM WEB SITE SPECIALIST 12/04/2024 10:26 AM WEB SITE SPECIALIST Narrative PRITESH NASH ([place]) - 12/04/2024 11:03 AM WEB SITE SPECIALIST Has the patient been fasting for 8 hours or more?->Yes us Terrance Trejo MD LAB BLOOD ORDERABLES Fi nal Result [facility] ([place]) [address] [facility] Department [place] [address] * PSA screen (06/08/2024 11:39 AM CDT) [...] LAB BLOOD ORDERABLES nal Result [facility] ([place]) [address] [facility] Department of Laboratories [place], [place] [id number] * (ABNORMAL) Diabetic Eye Exam (10/12/2023) 10/12/2023 us Generic External Data Provider HEALTH MAINTENANC E Final Result * COLONOSCOPY (03/25/2022 10:05 AM CDT) Anatomical Region Laterality Modality Other Narrative Procedure Note Lele Villalobos MD - 03/25/2022 10:05 AM CDT [facility] Patient Name: Judd Harrington Procedure Date: 03/25/2022 10:05 AM Date of : 1940 Admit Type: Outpatient Age: 81 Gender: Male Attending MD: Lele Villalobos M.D. Room: [facility] 2 Note Status: Finalized Patient [...] scope was passed under direct vision. TheColonoscope [id number] was introduced through the anus and advanced [...] 10:05 AM Procedure Code(s): --- Professional --- 92464, Colonoscopy, flexible; with removal of tumor(s), polyp(s), [...] descending colon K64.9, Unspecified hemorrhoids CPT copyright 202 [employer]. All rights reserved. The codes documented in this report are preliminary and upon articulation officer reviewmay be revised to meet current compliance requirements. Recognized by the [employer] for promoting quality in endoscopy Lele Villalobos MD ENDOSCOPY PROCEDURES Final Re sult * DIABETES FOOT EXAM (09/18/2019) Diabetic Foot Exam Abnormal Historical Provider HEALTH MAINTENANCE Final Result from Last 3 Months or Most Recently Relevant to Health Maintenance Insurance [facility] [place] H[place]/PPO Address: [address] [address] [place] [address] [facility] MEDICARE MEDICARE [facility] [place] [employer] [place] [place] H[place]/PPO Address: [address] [address] [place] [address] [facility] MEDICARE Advance Directives For more information, please contact: [phone] * Full Code (Latest Code Status on File) Date Activated Date Inactivated Comments 03/13/2024 7:41 PM 03/14/2024 4:52 PM * Full Code Date Activated Date Inactivated Comments 03/25/2022 9:54 AM 03/25/2022 5:15 PM * Full Code Date Activated Date Inactivated Comments 03/25/2022 9:54 AM 03/25/2022 9:54 AM Care Teams Clinical Trials Nurse Relationship Specialty Start Date End Date Terrance Trejo MD PCP - General 12/31/16 Martin Montes MD [address] [place] [address] [employer] Dermatology 10/30/21 Jered Muñoz MD [address] [place] [address] Medical Oncologist/Display Artist Hematology and Oncology 02/10/23
--- OUTSIDE RECORDS SUMMARY | 2025-04-02 15:37 | XMS_ITS | Encounter Summary ---
Author Organization [facility] Healthcare Address [address] [place] [address] Care Team Providers Care Direct Care Provider Name Role Phone Terrance Trejo MD Primary Care Provider Martin Montes MD Unavailable [phone] Jered Muñoz MD Unavailable [phone] Encounter Details Date Type Department Care Team (Late st Contact Info) Description 04/02/2022 Telephone [facility] Center [address] [place] [id number] Minal Larson, MISTY Social History Tobacco Use [...] on file Legal Sex Male 11:51 PM SHOP TECH Gender Identity Not on file Sexual Orientation Not on file documented as of this encounter Plan of Treatment Upcoming Encounters Date Type Department Care Team (Late st Contact Info) Description 10/10/2025 11:00 AM SHOP TECH Hospital Encounter [facility] Center [address] [place] [phone] Burton Solis MD [address] [place] [address] [address] [place] [address] 10/10/2025 11:00 AM SHOP TECH - 10/10/2025 11:30 AM SHOP TECH Surgery [facility] Digestive [facility] [address] [place] [address] Burton Solis MD [address] [place] [address] [address] [place] [address] COLONOSCOPY Scheduled Procedures Name Priority Associated Diagnoses Date/Ti me COLONOSCOPY History of colonic polyps 10/10/2025 11:00 AM SHOP TECH documented as of this encounter Visit Diagnoses Not on filedocumented in this encounter Additional Health Concerns Infection Onset Date Last Indicated Resolved Time COVID: Suspected 12/22/2022 12/22/2022 12/22/2022 12:00 PM CDT COVID: Suspected 12/27/2022 12/27/2022 12/27/2022 1:14 PM CDT documented as of this encounter Care Teams Direct Care Provider Relationship Specialty Start Date End Date Terrance Trejo MD PCP - General 12/31/16 Martin Montes MD [address] [facility] [address] [place], [place] [id number] Gas Main Fitter Dermatology 10/30/21 Jered Muñoz MD [address] [facility] [address] [place] [id number] Medical Oncologist/Defence Force Member Other Ranks Hematology and Oncology 02/10/23 documented as of this encounter
--- OUTSIDE RECORDS SUMMARY | 2025-04-02 15:37 | XMS_ITS | Clinical Summary ---
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 Assessment & Plan (09/08/2021 1:31 PM ALIGNER): This is a chronic condition which is [...] CVA,PAD. Assessment & Plan (10/30/2020 1:59 PM ALIGNER): This is a chronic condition which is [...] with some relief Continue with exercise at [facility]. 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 03/12/2025 Telephone [facility] [place] [address] [place] [address] Yue John from Last 3 Months Immunizations Immunization Administration Dates Next Due Influenza, Unspecified 12/11/2024(Deferr ed: Patient Refused),06/12/2024(Deferred: Patient Refused),08/08/2023(Deferred: Patient Refused),07/03/2021(Deferred: Patient Refused),07/03/2020(Deferred: Patient Refused),07/03/2019(Deferred: Patient Refused),07/03/2018(Deferred: Patient Refused) [employer] ([employer]) SARS-CoV-2 Vaccination 12/06/2020 Pneumococcal Conjugate PCV [...] 10/30/2021 CVA (cerebral vascular accid ent) (HCC) 2012 Difficulty walking Sleep apnea Type 2 diabetes [...] on file Legal Sex Male 11:51 PM ALIGNER Gender Identity Not on file Sexual Orientation [...] st Contact Info) Description 10/10/2025 11:00 AM ALIGNER Hospital Encounter [address] [address] Burton Solis MD [address] [place] [address] [place] [address] 10/10/2025 11:00 AM ALIGNER - 10/10/2025 11:30 AM ALIGNER Surgery [address] [address] Burton Solis MD [address] [place] [address] [place] [address] COLONOSCOPY Scheduled Procedures Name Priority Associated Diagnoses Date/Ti me COLONOSCOPY History of colonic polyps 10/10/2025 11:00 AM ALIGNER Health Maintenance Due Date Last Done Comments [...] 12/04/2024, 09/0 03/2024, 03/26/2024, Additional history exists Depression Screening 12/11/2025 12/11/2024, 06/12/2024, 03/26/2024, Additional history exists Fall Risk Assessment 12/11/2025 12/11/2024, 06/12/2024, 03/26/2024, Additional history exists Foot Exam 12/11/2025 12/11/2024, 06/03, 03/26/2024, Additional history exists Well Visit 65+ 12/11/2025 12/11/2024, 030 04/2024, 05/18/2022, Additional history exists eGFR 03/21/2026 03/21/2025, 030 01/2025, 09/20/2024, Additional history exists Colon Cancer Screening-CT Colonography Discontinued 03/25/2022, 04/08/2016, 04/08/2016, Additional history exists Colon Cancer Screening-DNA Stool Discontinued 03/25/2022, 10/19/2017, 04/08/2016, Additional history exists Colon Cancer Screening-FIT Discontinued 03/25, 10/19/2017, 04/08/2016, Additional history exists Colon Cancer Screening-Sigmoidoscopy Discontinued 03/25/2022, 04/08/2016, 04/08/2016, Additional history exists Abdominal Aortic Aneurysm (A AA) Screen Completed 03/15/2025, 07/17/2024, 02/14/2024 Procedures Procedure Name Priority Date/Time [...] CDT HEMOGLOBIN A1C Routine 12/04/2024 9:53 AM ALIGNER Type 2 diabetes mellitus with stage 3b chronic kidney disease, with long-term current use of insulin (HCC) LIPID PANEL Routine 12/04/2024 9:53 AM ALIGNER Type 2 diabetes mellitus with stage 3b chronic kidney disease, with long-term current use of insulin (HCC) ALBUMIN CREATININE RATIO, URINE Routine 12/04/2024 9:53 AM ALIGNER Type 2 diabetes mellitus with stage 3b chronic kidney disease, with long-term current use of insulin (HCC) PSA SCREEN Routine 06/08/2024 11:39 AM CDT Mixed hyperlipidemia Urine frequency DIABETIC EYE EXAM Routine 10/12/2023 COLONOSCOPY 03/25/2022 10:05 AM CDT DIABETES FOOT EXAM Routine 09/18/2019 from Last 3 Months or Most Recently Relevant to Health Maintenance Results * (ABNORMAL) eGFR (03/21/2025 2:00 PM CDT) [facility] eGFR 39(L) >=60 mL/min/1. 73 m2 Comment: [...] was last reviewed 2021. Testing performed by: [facility], [address], [place], [address] Blood 03/21/2025 2:00 PM CDT 03/21/2025 2:16 PM CDT us Dipak Funez MD LAB BLOOD ORDERABLES Jahaira l Result PRITESH [facility] (DEARBORN) [address] [facility] Department [place] [address] * Differential, auto (03/21/2025 2:00 PM CDT) Neutrophil abs 4.11 1.50 - 6.50 K/cumm [facility] (DEARBORN) Comment:Testing performed by : [facility] [address], Medical Office Bldg [address], [place] [address] Imm gran abs 0.01 0.00 - 0.10 K/cumm PRITESH [facility] (DEARBORN) Comment:Testing performed by : [facility] [address], Medical Office Bldg [address], [place] [address] Lymphocyte abs 1.11 0.80 - 3.30 K/cumm PRITESH [facility] ([place]) Comment:Testing performed by : [facility] [address], Medical Office [facility] [address], [place] [address] Monocyte abs 0.46 0.20 - 0.80 K/cumm [facility] ([place]) Comment:Testing performed by : [facility] [address], Medical Office [facility] [address], [place] [address] Eosinophil abs 0.07 0.00 - 0.50 K/cumm [facility] ([place]) Comment:Testing performed by : [facility] [address], Medical Office [facility] [address], [place] [address] Basophil abs 0.02 0.00 - 0.10 K/cumm [facility] ([place]) Comment:Testing performed by : [facility] [address], Medical Office [facility] [address], [place] [address] Neutrophil pct 71.1 % [facility] ([place]) Comment: Interpretive Data Percent cell count reference ranges are not reported, since discordance with absolute values may lead to misinterpretation of CBC data. Current Interpretive Data was last revised on 2022. Testing performed by: [facility] [address], Medical Office [facility] B [facility] [address], [place] [address] Imm gran pct 0.2 % [facility] ([place]) Comment: Interpretive Data Percent cell count reference ranges are not reported, since discordance with absolute values may lead to misinterpretation of CBC data. Current Interpretive Data was last revised on 2022. Testing performed by: [facility] [address], Medical Office [facility] [address], [place] [address] Lymphocyte pct 19.2 % [facility] ([place]) Comment: Interpretive Data Percent cell count reference ranges are not reported, since discordance with absolute values may lead to misinterpretation of CBC data. Current Interpretive Data was last revised on 2022. Testing performed by: [facility] [address], Medical Office [facility] [address], [place] [address] Monocyte pct 8.0 % [facility] ([place]) Comment: Interpretive Data Percent cell count reference ranges are not reported, since discordance with absolute values may lead to misinterpretation of CBC data. Current Interpretive Data was last revised on 2022. Testing performed by: [facility] [address], Medical Office [facility] B [facility] [address], [place] [address] Eosinophil pct 1.2 % [facility] ([place]) Comment: Interpretive Data Percent cell count reference ranges are not reported, since discordance with absolute values may lead to misinterpretation of CBC data. Current Interpretive Data was last revised on 2022. Testing performed by: [facility] [address], Medical Office [facility] B [facility] [address], [place] [address] Basophil pct 0.3 % [facility] ([place]) Comment: Interpretive Data Percent cell count reference ranges are not reported, since discordance with absolute values may lead to misinterpretation of CBC data. Current Interpretive Data was last revised on 2022. Testing performed by: [facility] [address], Medical Office [facility] B [facility] [address], [place] [address] Blood 03/21/2025 2:00 PM CDT 03/21/2025 2:04 PM CDT us Dipak Funez MD LAB BLOOD ORDERABLES Jahaira l Result PRITESH [facility] ([place]) [address] [facility] Department [place] [address] * (ABNORMAL) CBC with auto differential (03/21/2025 2:00 PM CDT) WBC 5.78 3.80 - 9.90 K/cumm [facility] ([place]) Comment:Testing performed by : [facility] [address], Medical Office [facility] B [facility] [address], [place] [address] Hgb 12.7(L) 13.0 - 17.5 g/dL [facility] ([place]) Comment:Testing performed by : [facility] [address], Medical Office [facility] [address], [place] [address] Hct 38.9 38.9 - 50.3 % [facility]ESH [facility] ([place]) Comment:Testing performed by : [facility] [address], Medical Office [facility] [address], [place] [address] Plt 216 150 - 400 K/cumm [facility] ([place]) Comment:Testing performed by : [facility] [address], Medical Office [facility] [address], [place] [address] MPV 10.9 9.1 - 12.3 fL [facility] ([place]) Comment:Testing performed by : [facility] [address], Medical Office [facility] [address], [place] [address] RBC 4.15(L) 4.30 - 5.80 M/cumm [facility] ([place]) Comment:Testing performed by : [facility] [address], Medical Office [facility] B [facility] [address], [place] [address] MCV 93.7 81.3 - 96.4 fL [facility] ([place]) Comment:Testing performed by : [facility] [address], Medical Office [facility] [address], [place] [address] MCH 30.6 27.1 - 33.3 pg [facility] ([place]) Comment:Testing performed by : [facility] [address], Medical Office [facility] [address], [place] [address] MCHC 32.6 32.3 - 35.7 g/dL [facility] ([place]) Comment:Testing performed by : [facility] [address], Medical Office [facility] B [facility] [address], [place] [address] RDW CV 12.2 11.1 - 14.9 % [facility] ([place]) Comment:Testing performed by : [facility] [address], Medical Office [facility] B [facility] [address], [place] [address] RDW SD 42.6 35.7 - 48.1 fL [facility] ([place]) Comment:Testing performed by : [facility] [address], Medical Office [facility] B [facility] [address], [place] [address] Blood 03/21/2025 2:00 PM CDT 03/21/2025 2:04 PM CDT us Dipak Funez MD LAB BLOOD ORDERABLES Jahaira nicholson Result [facility] ([place]) [address] [facility] Department [place] [address] * Lactate dehydrogenase (LD) (03/21/2025 2:00 PM CDT) Lactate dehydrogenase (LDH) 121 100 - 250 Units/L Comment:Testing performed by : [place], [address] Blood 03/21/2025 2:00 PM CDT 03/21/2025 2:16 PM CDT us Dipak Funez MD LAB BLOOD ORDERABLES Jahaira l Result [facility] ([place]) [address] [facility] Department [place] [address] * (ABNORMAL) Comprehensive metabolic panel (03/21/2025 2:00 PM CDT) Pathologist [facility] Sodium 134(L) 135 - 145 mmol/L Comment:Testing performed by : [facility], [place], [address] Potassium, pl 5.0(H) 3.3 - 4.9 mmol/L [facility] ([place]) Comment:Testing performed by : [place], [address] Chloride 98 97 - 110 mmol/L [facility] ([place]) Comment:Testing performed by : [facility], [place], [address] CO2 24 22 - 32 mmol/L [facility] ([place]) Comment:Testing performed by : [place], [address] Anion gap 13 2 - 15 mmol/L [facility] ([place]) Comment:Testing performed by : [place], [address] BUN 37(H) 6 - 25 mg/dL [facility] ([place]) Comment:Testing performed by : [place], [address] Creatinine 1.73(H) 0.80 - 1.30 mg/dL [facility] ([place]) Comment:Testing performed by : [facility], [place], [address] Glucose 365(H) 70 - 199 mg/dL CERNER [...] was last revised 2022. Testing performed by: [place], [address] Calcium 8.5 8.5 - 10.3 mg/dL [facility] ([place]) Comment:Testing performed by : [place], [address] Bilirubin, total 0.3 0.1 - 1.2 mg/dL [facility] ([place]) Comment:Testing performed by : [facility], [place], [address] Protein, pl 6.2(L) 6.5 - 8.5 g/dL [facility] ([place]) Comment:Testing performed by : [facility], [place], [address] Albumin 3.5 3.5 - 5.0 g/dL [facility] ([place]) Comment:Testing performed by : [place], [address] Alk phos 82 40 - 130 Units/L [facility] ([place]) Comment:Testing performed by : [facility], [place], [address] ALT 9 7 - 55 Units/L [facility] ([place]) Comment:Testing performed by : [place], [address] AST 7(L) 10 - 50 Units/L [facility] ([place]) Comment:Testing performed by : [facility], [place], [address] Blood 03/21/2025 2:00 PM CDT 03/21/2025 2:16 PM CDT us Dipak Funez MD LAB BLOOD ORDERABLES Jahaira l Result [facility] DEARBORN [address] [facility] Department of Laboratories [place], [place] [id number] * CT Chest Abdomen Pelvis W Contrast [...] Dipak Hurtado M.D. RB: JORGE Report ID: [id number] Reading Location: [id number] Procedure Note Dipak Hurtado MD - 03/21/2025 [...] Dipak Hurtado M.D. RB: JORGE Report ID: [id number] Reading Location: [place] [address] Dipak Funez MD IMG CT PROCEDURES Final R esult * (ABNORMAL) Creatinine, whole blood (03/15/2025 1:03 PM CDT) Pathologist [facility] Creatinine, bld 1.95(H) 0.60 - 1.30 mg/dL Blood 03/15/2025 1:03 PM CDT 03/15/2025 1:06 PM CDT Dipak Funez MD LAB BLOOD ORDERABLES Jahaira l Result [facility] DEARBORN) [address] [facility] Department [place] [address] * Albumin Creatinine Ratio, Urine (12/04/2024 9:53 AM ALIGNER) Albumin Ur <12.0 mg/L Comment: Interpretive Data No reference range established. Current interpretive data was last revised 2019. Testing performed by: [address] [place]., [address] Creatinine Ur 58.6 mg/dL [facility] ([place]) Comment: Interpretive Data No reference range established. Current interpretive data was last revised 2019. Testing performed by: [address] [address] Albumin Creatinine Ratio, Ur <20 1 - 29 mg/g [facility] (DEARBORN) Comment:Testing performed by : [facility], [address] [place] [address], [place]., [address] Urine 12/04/2024 9:53 AM ALIGNER 12/04/2024 4:44 PM ALIGNER Terrance Trejo MD LAB URINE ORDERABLES Fi nal Result Performing Organization Address [facility] de Phone Number PR[facility]ESH [facility] (DEARBORN) [address] [place] [address] * (ABNORMAL) Hemoglobin A1c (12/04/2024 9:53 AM ALIGNER) Hgb A1C 9.4(H) 4.0 - 5.6 % Estimated Average Glucose 223 mg/dL [facility] (DEARBORN) Comment: The ADA recommends reporting an estimated Average Glucose (eAG) with all Hemoglobin A1c results using the equation derived from a study of 507 normal and diabetic adults. Minority populations were underrepresented and children were not included. (Diabetes Care 31:2564-7627, 2008). The eAG is not equivalent to a fasting glucose. Blood 12/04/2024 9:53 AM ALIGNER 12/04/2024 10:26 AM ALIGNER Terrance Trejo MD LAB BLOOD ORDERABLES Fi nal Result Performing Organization Address [facility] de Phone Number [facility] ([place]) [address] [place] [address] * (ABNORMAL) Lipid panel (12/04/2024 9:53 AM ALIGNER) Cholesterol 148 30 - 199 mg/dL Comment: [...] on 2018. Triglycerides 134 <=149 mg/dL PRITESH BARNETT) Comment: Interpretive Data Ages [...] on 2018. HDL 37(L) >=40 mg/dL PRITESH BARNETT) Comment: Interpretive Data Ages [...] 2018. LDL, calculated 87 <=129 mg/dL PRITESH BARNETT) Comment: Interpretive Data Ages < or = 19 years Acceptable: <110 mg/dL Borderline high: 110-129 mg/dL High: >or= 130 mg/dL Ages > or = 20 years Optimal: <100 mg/dL Near optimal: 100-129 mg/dL Borderline high: 130-159 mg/dL High: >160 mg/dL Calculated using the Herbert LDL-C estimating equation. This equation was implemented on 2024. Prior to this date LDL-C was estimated using the Friedewald equation. Literature References: 1. Expert Panel on Integrated Guidelines for Cardiovascular Health and Risk Reduction in Children and Adolescents. Pediatrics 2011;128:S213 2. NCEP Expert Panel. Circulation 2004;110:227 3. Keon M et al. RANI Cardiol. 2020 January 31;5(5):540-548. doi: [...] [facility]BY [facility] ([place]) Blood 12/04/2024 9:53 AM ALIGNER 12/04/2024 10:26 AM ALIGNER Narrative [facility]ESH [facility] ([place]) - 12/04/2024 11:03 AM ALIGNER Has the patient been fasting for 8 hours or more?->Yes us Terrance Trejo MD LAB BLOOD ORDERABLES Fi nal Result [facility] ([place]) [address] [facility] Department [place] [address] * PSA screen (06/08/2024 11:39 AM CDT) [...] LAB BLOOD ORDERABLES Fi nal Result [facility]ESH [facility] (DEARBORN) [address] [facility] Department [place] [address] * (ABNORMAL) Diabetic Eye Exam (10/12/2023) 10/12/2023 us Generic External Data Provider HEALTH MAINTENANC E Final Result * COLONOSCOPY (03/25/2022 10:05 AM CDT) Anatomical Region Laterality Modality Other Narrative Procedure Note Lele Villalobos MD - 03/25/2022 10:05 AM CDT [facility] Patient Name: Judd Harrington Procedure Date: 03/25/2022 10:05 AM Date of : 1940 Admit Type: Outpatient Age: 81 Gender: Male Attending MD: Lele Villalobos M.D. Room: [facility]END[facility] ENDOSCOPY ROOM 2 Note Status: Finalized [...] scope was passed under direct vision. TheColonoscope [id number] was introduced through the anus and advanced [...] 10:05 AM Procedure Code(s): --- Professional --- 48810, Colonoscopy, flexible; with removal of tumor(s), polyp(s), [...] colon K64.9, Unspecified hemorrhoids CPT copyright 2020 [employer]. All rights reserved. The codes documented in this report are preliminary and upon evp business development reviewmay be revised to meet current compliance requirements. Recognized by the [employer] for promoting quality in endoscopy Lele Villalobos MD ENDOSCOPY PROCEDURES Final Re sult * DIABETES FOOT EXAM (09/18/2019) Diabetic Foot Exam Abnormal Historical Provider HEALTH MAINTENANCE Final Result from Last 3 Months or Most Recently Relevant to Health Maintenance Insurance [facility] [place] H[place]/PPO Address: [address] [address] [place] [address] [facility] MEDICARE MEDICARE [facility] Address: [address] [address] [place] [address] [facility] [employer] [place] H[employer]/PPO Address: [address] [address] [place] [address] [employer] MEDICARE Advance Directives For more information, please contact: [phone] * Full Code (Latest Code Status on File) Date Activated Date Inactivated Comments 03/13/2024 7:41 PM 03/14/2024 4:52 PM * Full Code Date Activated Date Inactivated Comments 03/25/2022 9:54 AM 03/25/2022 5:15 PM * Full Code Date Activated Date Inactivated Comments 03/25/2022 9:54 AM 03/25/2022 9:54 AM Care Teams Ceramic Worker Relationship Specialty Start Date End Date Terrance Trejo MD PCP - General 12/31/16 Martin Montes MD [address] [place] [id number] Financial Reporting Consultant Dermatology 10/30/21 Jered Muñoz MD [address] [id number] Medical Oncologist/Disability Counselor Hematology and Oncology 02/10/23
--- OUTSIDE RECORDS SUMMARY | 2025-04-02 15:37 | XMS_ITS | Encounter Summary ---
Author Organization [facility] Healthcare Address [address] [place] [address] Care Team Providers Care Acute Care Registered Nurse Name Role Phone Terrance Trejo MD Primary Care Provider Martin Montes MD Unavailable [phone] Jered Muñoz MD Unavailable [phone] Encounter Details Date Type Department Care Team (Late st Contact Info) Description 04/01/2022 Telephone [facility] [address] [place] [address] Minal Larson, MISTY Social History Tobacco Use [...] on file Legal Sex Male 11:51 PM HAM STRIPPER Gender Identity Not on file Sexual Orientation Not on file documented as of this encounter Plan of Treatment Upcoming Encounters Date Type Department Care Team (Late st Contact Info) Description 10/10/2025 11:00 AM HAM STRIPPER Hospital Encounter [facility] [address] [place] [address] Burton Solis MD [address] [place] [address] [address] [place] [address] 10/10/2025 11:00 AM HAM STRIPPER - 10/10/2025 11:30 AM HAM STRIPPER Surgery [facility] Digestive [facility] [address] [place] [address] Burton Solis MD [address] [place] [address] [address] [place] [address] COLONOSCOPY Scheduled Procedures Name Priority Associated Diagnoses Date/Ti me COLONOSCOPY History of colonic polyps 10/10/2025 11:00 AM HAM STRIPPER documented as of this encounter Visit Diagnoses Not on filedocumented in this encounter Additional Health Concerns Infection Onset Date Last Indicated Resolved Time COVID: Suspected 12/22/2022 12/22/2022 12/22/2022 12:00 PM CDT COVID: Suspected 12/27/2022 12/27/2022 12/27/2022 1:14 PM CDT documented as of this encounter Care Teams Acute Care Registered Nurse Relationship Specialty Start Date End Date Terrance Trejo MD PCP - General 12/31/16 Martin Montes MD [address] [place], [place] [id number] Safety Patrol Officer Dermatology 10/30/21 Jered Muñoz MD [address] [place] [id number] Medical Oncologist/Customer Service Specialist Hematology and Oncology 02/10/23 documented as of this encounter
--- OUTSIDE RECORDS SUMMARY | 2025-04-02 15:37 | XMS_ITS | Encounter Summary ---
Author Organization [facility] Address [address] [place] [address] Phone Care Team Providers Care Welder Machine Operator Name Role Phone Terrance Trejo MD Primary Care Provider George Blackwell LPN Unavailable Unavail able Martin Montes MD Unavailable [phone] Jered Muñoz MD Unavailable [phone] Encounter Details Date Type Department Care Team (Late st Contact Info) Description 09/16/2017 Orders Only [facility] ProviderTherese MD [address] [place], [place] [phone] Social History Tobacco Use Types Packs/Day Years Used Date Smoking Tobacco: Smoker, Current Status Unknown Alcohol Use Standard Drinks/Week Comments Yes 0 (1 standard drink = 0.6 oz pur e alcohol) Sex and Gender Information Value Date Recorded Sex Assigned at Not on file Legal Sex Male 11:51 PM WEB MANAGER Gender Identity Not on file Sexual Orientation Not on file documented as of this encounter Plan of Treatment Upcoming Encounters Date Type Department Care Team (Late st Contact Info) Description 10/10/2025 11:00 AM WEB MANAGER Hospital Encounter [address] [address] Burton Solis MD [address] [place] [address] [place] [address] 10/10/2025 11:00 AM WEB MANAGER - 10/10/2025 11:30 AM WEB MANAGER Surgery [address] [address] Burton Solis MD [address] [place] [address] [address] [place] [address] COLONOSCOPY Scheduled Procedures Name Priority Associated Diagnoses Date/Ti me COLONOSCOPY History of colonic polyps 10/10/2025 11:00 AM WEB MANAGER documented as of this encounter Procedures Procedure Name Priority Date/Time Associated Diagnosis Comments DISCHARGE LABORATORY CUMULATIVE REPORT 09/16/2017 12:00 AM WEB MANAGER documented in this encounter Results * DISCHARGE LABORATORY CUMULATIVE REPORT (09/16/2017 12:00 AM WEB MANAGER) Narrative 09/16/2017 12:00 AM WEB MANAGER Ordered by an unspecified provider. us Historical Provider LAB BLOOD ORDERABLES Jahaira l Result documented in this encounter Visit Diagnoses Not on filedocumented in this encounter Additional Health Concerns Infection Onset Date Last Indicated Resolved Time COVID: Suspected 12/22/2022 12/22/2022 12/22/2022 12:00 PM CDT COVID: Suspected 12/27/2022 12/27/2022 12/27/2022 1:14 PM CDT documented as of this encounter Care Teams Welder Machine Operator Relationship Specialty Start Date End Date Terrance Trejo MD PCP - General 12/31/16 George Blackwell LPN Care Manager 12/21/17 12/27/17 Martin Montes MD [address] [facility] [place] [phone] Chute Worker Dermatology 10/30/21 Jered Muñoz MD [address] [place] [phone] Medical Oncologist/Corporate Tutor Hematology and Oncology 02/10/23 documented as of this encounter
== END ==
LOC: ANHLAB 15:35
PROVIDERS: Visit Provider Plastic Surgery
DX: C44.612 Basal cell carcinoma of skin of right upper limb, including shoulder (principal)
CPT/HCPCS: 88305

== ENCOUNTER → 2025-06-19 15:17 | Outpatient (REF) | payer MEDICARE, SELFPAY ==
--- NOTE | 2025-06-19 15:17 | S_PTH ---
PATIENT: Bryn Harrington LOC: ANHLAB #:[id number] AGE/SX: 85/M ROOM: RE06/19/[address]: Priti Marshall MD : 1940 BED: DIS: SPEC #: [id number] RECD: 06/20/25 07:42 STATUS: RANDALL ZHANG #: [id number] REHAN: 06/19/25 15:[address]: Priti Marshall DEPT: [facility] Surgical RECD BY: Geovanna Sandoval ENTERED: 06/20/25 07:42 SP TYPE: Surgical OTHR DR: UNKNOWN,DOCTOR Tissues: A - Skin Procedures: Hematoxylin and Eosin Stain Gross and Microscopic Level 4
--- OUTSIDE RECORDS SUMMARY | 2025-06-19 15:59 | XMS_ITS | Encounter Summary ---
Author Organization [facility] Healthcare Address [address] [place] [address] Care Team Providers Care Auto Care Center Manager Name Role Phone Terrance Trejo MD Primary Care Provider Martin Montes MD Unavailable [phone] Jered Muñoz MD Unavailable [phone] Encounter Details Date Type Department Care Team (Late st Contact Info) Description 04/02/2022 Telephone [facility] [address] [place] [address] Minal Larson, MISTY Social History Tobacco Use [...] on file Legal Sex Male 11:51 PM SHIP CONSTRUCTION TEACHER Gender Identity Not on file Sexual Orientation Not on file documented as of this encounter Plan of Treatment Upcoming Encounters Date Type Department Care Team (Late st Contact Info) Description 10/10/2025 11:00 AM SHIP CONSTRUCTION TEACHER Hospital Encounter [facility] Center [address] [place] [address] Burton Solis MD [address] [place] [address] [address] [place] [address] 10/10/2025 11:00 AM SHIP CONSTRUCTION TEACHER - 10/10/2025 11:30 AM SHIP CONSTRUCTION TEACHER Surgery [facility] [address] [place] [address] Burton Solis MD [address] [facility] [address] [place] [address] COLONOSCOPY Scheduled Procedures Name Priority Associated Diagnoses Date/Ti me COLONOSCOPY History of colonic polyps 10/10/2025 11:00 AM SHIP CONSTRUCTION TEACHER documented as of this encounter Visit Diagnoses Not on filedocumented in this encounter Additional Health Concerns Infection Onset Date Last Indicated Resolved Time COVID: Suspected 12/22/2022 12/22/2022 12/22/2022 12:00 PM CDT COVID: Suspected 12/27/2022 12/27/2022 12/27/2022 1:14 PM CDT documented as of this encounter Care Teams Auto Care Center Manager Relationship Specialty Start Date End Date Terrance Trejo MD PCP - General 12/31/16 Martin Montes MD Ticket Sales Supervisor Dermatology 10/30/21 Jered Muñoz MD Medical Oncologist/Hvac Specialist Hematology and Oncology 02/10/23 documented as of this encounter
--- OUTSIDE RECORDS SUMMARY | 2025-06-19 15:59 | XMS_ITS | Encounter Summary ---
Author Organization [facility] Healthcare Address [address] [place] [address] Care Team Providers Care Cafeteria Assistant Name Role Phone Terrance Trejo MD Primary Care Provider Martin Montes MD Unavailable [phone] Jered Muñoz MD Unavailable [phone] Encounter Details Date Type Department Care Team (Late st Contact Info) Description 04/01/2022 Telephone [facility] [address] [place] [address] Minal Larson, MISTY Social History Tobacco Use [...] on file Legal Sex Male 11:51 PM MANAGER PHILOSOPHY Gender Identity Not on file Sexual Orientation Not on file documented as of this encounter Plan of Treatment Upcoming Encounters Date Type Department Care Team (Late st Contact Info) Description 10/10/2025 11:00 AM MANAGER PHILOSOPHY Hospital Encounter [facility] [address] [place] [address] Burton Solis MD [address] [place] [address] [address] [place] [address] 10/10/2025 11:00 AM MANAGER PHILOSOPHY - 10/10/2025 11:30 AM MANAGER PHILOSOPHY Surgery [facility] Digestive [facility] [address] [place] [address] Burton Solis MD [address] [facility] [facility] [address] [place] [address] COLONOSCOPY Scheduled Procedures Name Priority Associated Diagnoses Date/Ti me COLONOSCOPY History of colonic polyps 10/10/2025 11:00 AM MANAGER PHILOSOPHY documented as of this encounter Visit Diagnoses Not on filedocumented in this encounter Additional Health Concerns Infection Onset Date Last Indicated Resolved Time COVID: Suspected 12/22/2022 12/22/2022 12/22/2022 12:00 PM CDT COVID: Suspected 12/27/2022 12/27/2022 12/27/2022 1:14 PM CDT documented as of this encounter Care Teams Cafeteria Assistant Relationship Specialty Start Date End Date Terrance Trejo MD PCP - General 12/31/16 Martin Montes MD Administrator Pesticide Dermatology 10/30/21 Jered Muñoz MD Medical Oncologist/Hooker Machine Tender Hematology and Oncology 02/10/23 documented as of this encounter
--- OUTSIDE RECORDS SUMMARY | 2025-06-19 15:59 | XMS_ITS | Encounter Summary ---
Author Organization [facility] Address [address] [place] [address] Phone Care Team Providers Care Retail Manager In Training Name Role Phone Terrance Trejo MD Primary Care Provider George Blackwell LPN Unavailable Unavail able Martin Montes MD Unavailable [phone] Jered Muñoz MD Unavailable [phone] Encounter Details Date Type Department Care Team (Late st Contact Info) Description 09/16/2017 Orders Only [facility] ProviderTherese MD [address] [place], [place] [id number] Social History Tobacco Use Types Packs/Day Years Used Date Smoking Tobacco: Smoker, Current Status Unknown Alcohol Use Standard Drinks/Week Comments Yes 0 (1 standard drink = 0.6 oz pur e alcohol) Sex and Gender Information Value Date Recorded Sex Assigned at Not on file Legal Sex Male 11:51 PM VAT OPERATOR Gender Identity Not on file Sexual Orientation Not on file documented as of this encounter Plan of Treatment Upcoming Encounters Date Type Department Care Team (Late st Contact Info) Description 10/10/2025 11:00 AM VAT OPERATOR Hospital Encounter [address] [address] Burton Solis MD [address] [place] [address] [place] [address] 10/10/2025 11:00 AM VAT OPERATOR - 10/10/2025 11:30 AM VAT OPERATOR Surgery [address] [address] Burton Solis MD [address] [place] [address] [address] [place] [address] COLONOSCOPY Scheduled Procedures Name Priority Associated Diagnoses Date/Ti me COLONOSCOPY History of colonic polyps 10/10/2025 11:00 AM VAT OPERATOR documented as of this encounter Procedures Procedure Name Priority Date/Time Associated Diagnosis Comments DISCHARGE LABORATORY CUMULATIVE REPORT 09/16/2017 12:00 AM VAT OPERATOR documented in this encounter Results * DISCHARGE LABORATORY CUMULATIVE REPORT (09/16/2017 12:00 AM VAT OPERATOR) Narrative 09/16/2017 12:00 AM VAT OPERATOR Ordered by an unspecified provider. us Historical Provider LAB BLOOD ORDERABLES Jahaira l Result documented in this encounter Visit Diagnoses Not on filedocumented in this encounter Additional Health Concerns Infection Onset Date Last Indicated Resolved Time COVID: Suspected 12/22/2022 12/22/2022 12/22/2022 12:00 PM CDT COVID: Suspected 12/27/2022 12/27/2022 12/27/2022 1:14 PM CDT documented as of this encounter Care Teams Retail Manager In Training Relationship Specialty Start Date End Date Terrance Trejo MD PCP - General 12/31/16 George Blackwell LPN Care Manager 12/21/17 12/27/17 Martin Montes MD B Operator Dermatology 10/30/21 Jered Muñoz MD Medical Oncologist/Research & Analytics Manager Hematology and Oncology 02/10/23 documented as of this encounter
--- OUTSIDE RECORDS SUMMARY | 2025-06-19 15:59 | XMS_ITS | Clinical Summary ---
Author Organization [facility] Address [address] [place] [address] Care Team Providers Care Ammonia Print Operator Name Role Phone Terrance Trejo MD Primary Care Provider Martin Montes MD Unavailable [phone] Jered Muñoz MD Unavailable Allergies No known active allergies Medications multivitamin (MULTIPLE VITAMINS ORAL)Indicati ons:supplemen t Take 1 tablet by mouth every morning Active cinnamon bark 500 mg capsuleIndica tions:supplem ent Take 1 capsule (500 mg total) by mouth every morning Active aspirin 81 mg enteric coated tablet Take 1 tablet (81 mg total) by mouth daily 30 tablet 023 Active insulin syringe-needl e U-100 1 mL 30 gauge X 7/16 syringe USE ONCE DAILY DIRECTED 100 each 3 023 Active FreeStyle Lite Strips strip TEST ONCE DAILY DIRECTED 100 strip 3 023 Active FreeStyle Lite Strips strip TEST ONCE DAILY DIRECTED 100 strip 3 023 Active TRUEplus Insulin 1 mL 30 gauge x 5/16 syringe daily 023 Active furosemide (LASIX) 40 mg tablet Take 1 tablet (40 mg total) by mouth daily 90 tablet 024 Active lisinopriL (PRINIVIL,ZES TRIL) 5 mg tablet Take 1 tablet (5 mg total) by mouth daily 90 tablet 3 024 Active blood glucose diagnostic (glucose blood) strip 1 each by other route as directed Test daily 100 each 024 Active Trulicity 3 mg/0.5 mL pen injector INJECT 3 MG UNDER THE SKIN EVERY 7 DAYS. NOTE HIGHER DOSE Active metFORMIN XR (GLUCOPHAGE XR) 500 mg 24 hr tablet Active blood-glucose meter kit Give patient one kit that insurance will cover dx e11.9 1 kit Active blood glucose diagnostic (glucose blood) strip Test daily dx e11.9 100 each 11 025 2025 Active dutasteride (AVODART) 0.5 mg capsule TAKE 1 CAPSULE DAILY 100 capsule 1 Active tamsulosin (FLOMAX) 0.4 mg extended release capsule TAKE 1 CAPSULE DAILY 100 capsule 1 Active gabapentin (NEURONTIN) 300 mg capsule TAKE 1 CAPSULE TWICE DAILY 180 capsule 1 Active verapamil SR (CALAN SR) 240 mg CR tablet TAKE 1 TABLET NIGHTLY 90 tablet 1 Active LANTUS 100 unit/mL (3 mL) pen for injection INJECT 50 UNITS SUBCUTANEOUSLY EVERY MORNING 15 mL 3 Active atorvastatin (LIPITOR) 10 mg tablet Take 1 tablet (10 mg total) by mouth daily 100 tablet 1 Active insulin glargine (LANTUS) 100 unit/mL (3 mL) pen for injection Inject 50 Units under the skin every morning 15 mL 3 025 2024 Discontinued verapamil SR (CALAN SR) 240 mg CR tablet TAKE 1 TABLET NIGHTLY 100 tablet 1 025 2024 Discontinued atorvastatin (LIPITOR) 10 mg tablet TAKE 1 TABLET DAILY 100 tablet 1 025 2024 Discontinued(R eorder) Active Problems Problem Noted Date Diagnosed Date History of colonic polyps 03/12/2025 Acute on chronic diastolic heart failure YAO (acute kidney injury) 03/14/2024 Seizure-like activity [...] (03/23/2022): Added automatically from request for surgery [id number] 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 Assessment & Plan (09/08/2021 1:31 PM ELECTRICAL TESTS SUPERVISOR): This is a chronic condition which is [...] CVA,PAD. Assessment & Plan (10/30/2020 1:59 PM ELECTRICAL TESTS SUPERVISOR): This is a chronic condition which is [...] with some relief Continue with exercise at [facility]. history of macrovascular disease - CVA Multiple-type hyperlipidemia 02/16/2014 Overview (01/06/2017): MIXED HYPERLIPIDEMIA Assessment & Plan (11/09/2022 1:34 PM ELECTRICAL TESTS SUPERVISOR): This is a chronic condition which is [...] day Assessment & Plan (11/09/2022 1:34 PM ELECTRICAL TESTS SUPERVISOR): This is a chronic condition which is [...] appt. 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) (Primary Dx) 03/21/2025 2:15 PM CDT Lab [facility] 4 [facility] [address] [place] [address] 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) from Last 3 Months Immunizations Immunization Administration Dates Next Due Influenza, Unspecified 12/11/2024(Deferr ed: Patient Refused),06/12/2024(Deferred: Patient Refused),08/08/2023(Deferred: Patient Refused),07/03/2021(Deferred: Patient Refused),07/03/2020(Deferred: Patient Refused),07/03/2019(Deferred: Patient Refused),07/03/2018(Deferred: Patient Refused) Red Swoosh (J&J) SARS-CoV-2 Vaccination 12/06/2020 Pneumococcal Conjugate PCV [...] walking Sleep apnea Type 2 diabetes mellitus Lymphoma (HCC) Family History Medical History Relation [...] on file Legal Sex Male 11:51 PM ELECTRICAL TESTS SUPERVISOR Gender Identity Not on file Sexual Orientation [...] st Contact Info) Description 10/10/2025 11:00 AM ELECTRICAL TESTS SUPERVISOR Hospital Encounter [facility] [address] [place] [address] Burton Solis MD [address] [place] [address] [address] [place] [address] 10/10/2025 11:00 AM ELECTRICAL TESTS SUPERVISOR - 10/10/2025 11:30 AM ELECTRICAL TESTS SUPERVISOR Surgery [address] [address] Burton Solis MD [address] [facility] [address] [place] [address] COLONOSCOPY Scheduled Procedures Name Priority Associated Diagnoses Date/Ti me COLONOSCOPY History of colonic polyps 10/10/2025 11:00 AM ELECTRICAL TESTS SUPERVISOR Health Maintenance Due Date Last Done Comments DTaP/Tdap/Td Vaccine (1 - Tdap) 1951 Hepatitis B Screening 1959 Pneumococcal vaccine 65+ (1 of 2 - PCV) 1960 Zoster Vaccine (1 of 2) 1960 Colon Cancer Screening-Colonoscopy 03/25/2023 03/25/2022, 04/08/2016, 04/08/2016, Additional history exists Dilated Eye Exam 10/12/2024 10/12/2023, 06/2021, 12/10/2019, Additional history exists Covid-19 Vaccine (3 - 2024-2 6 season) 2025 09/17/2021, 12/06/2020 Influenza Vaccine (#1) 2025 Albumin Creatinine Ratio, Urine 12/04/2025 12/04/2024, 03/26/2024, 12/05/2023, Additional history exists Hemoglobin A1C 12/08/2025 06/10/2025, 03/0 01/2025, 06/08/2024, Additional history exists Depression Screening 12/11/2025 12/11/2024, 06/12/2024, 03/26/2024, Additional history exists Fall Risk Assessment 12/11/2025 12/11/2024, 06/12/2024, 03/26/2024, Additional history exists Foot Exam 12/11/2025 12/11/2024, 06/03, 03/26/2024, Additional history exists Well Visit 65+ 12/11/2025 12/11/2024, 030 04/2024, 05/18/2022, Additional history exists Lipid Panel 06/10/2026 06/10/2025, 03/0 01/2025, 06/08/2024, Additional history exists Prostate Cancer Screening-PSA 06/10/2026, 06/08/2024, 05/25/2023, Additional history exists eGFR 06/10/2026 06/10/2025, 03/03, 12/04/2024, Additional history exists Colon Cancer Screening-CT Colonography [...] Priority Date/Time Associated Diagnosis Comments EGFR Routine 06/10/2025 9:57 AM CDT Hypertension associated with type 2 diabetes mellitus (HCC) COMPREHENSIVE METABOLIC PANEL Routine 06/10/2025 9:57 AM CDT Hypertension associated with type 2 diabetes mellitus (HCC) HEMOGLOBIN A1C Routine 06/10/2025 9:57 AM CDT Hypertension associated with type 2 diabetes mellitus (HCC) LIPID PANEL Routine 06/10/2025 9:57 AM CDT Hypertension associated with type 2 diabetes mellitus (HCC) PSA SCREEN Routine 06/10/2025 9:57 AM CDT Urine frequency EGFR Routine 03/21/2025 2:00 PM CDT Grade [...] lymphoma of lymph nodes of neck (HCC) ALBUMIN CREATININE RATIO, URINE Routine 12/04/2024 9:53 AM ELECTRICAL TESTS SUPERVISOR Type 2 diabetes mellitus with stage 3b chronic kidney disease, with long-term current use of insulin (HCC) DIABETIC EYE EXAM Routine 10/12/2023 COLONOSCOPY 03/25/2022 10:05 AM CDT DIABETES FOOT EXAM Routine 09/18/2019 from Last 3 Months or Most Recently Relevant to Health Maintenance Results * (ABNORMAL) eGFR (06/10/2025 9:57 AM CDT) eGFR 40(L) >=60 mL/min/1. 73 m2 Comment: Interpretive Data [...] interpretive data was last reviewed 2021. Blood 06/10/2025 9:57 AM CDT 06/10/2025 10:11 AM CDT us Terrance Trejo MD LAB BLOOD ORDERABLES Fi nal Result PRITESH [facility] ([place]) 1 [facility] Department of Laboratories [place], [place] [id number] * PSA screen (06/10/2025 9:57 AM CDT) PSA-Total <0.10 <=6.20 ng/mL [facility] ([place]) Comment: Interpretive Data AGE SEX REFERENCE INTERVAL [...] Current interpretive data last revised 22. Blood 06/10/2025 9:57 AM CDT 06/10/2025 10:11 AM CDT Terrance Trejo MD LAB BLOOD ORDERABLES nal Result Performing Organization Address [facility] Co de Phone Number PRITESH NASH ([place]) [address] [place] [address] [place] [address] * (ABNORMAL) Hemoglobin A1c (06/10/2025 9:57 AM CDT) Hgb A1C 8.9(H) 4.0 - 5.6 % [facility] ([place]) Estimated Average Glucose 209 mg/dL [facility] ([place]) Comment: The ADA recommends reporting an estimated Average Glucose (eAG) with all Hemoglobin A1c results using the equation derived from a study of 507 normal and diabetic adults. Minority populations were underrepresented and children were not included. (Diabetes Care 31:4716-8450, 2008). The eAG is not equivalent to a fasting glucose. Testing performed by: [facility], [place], [address] Blood 06/10/2025 9:57 AM CDT 06/10/2025 10:11 AM CDT Terrance Trejo MD LAB BLOOD ORDERABLES nal Result Performing Organization Address [facility] Phone Number PRITESH [facility] ([place]) [address] [place] [phone] * (ABNORMAL) Lipid panel (06/10/2025 9:57 AM CDT) Cholesterol 142 30 - 199 mg/dL [facility] ([place]) Comment: Interpretive Data Ages < or = [...] Data was last revised on 2018. Triglycerides 108 <=149 mg/dL PRITESH [facility] ([place]) Comment: Interpretive [...] Data was last revised on 2018. HDL 38(L) >=40 mg/dL PRITESH Mustafa ([place]) Comment: Interpretive [...] was last revised on 2018. LDL, calculated 84 <=129 mg/dL [facility] ([place]) Comment: Interpretive [...] 3. Keon Hardy et al. RANI Cardiol. 2020 January 31;5(5):540-548. doi: 10.1001/[email or web address] Current Interpretive Data was last revised on 2024. Testing performed by: [place], [address] Non-HDL Cholesterol 104 mg/dL PRITESH [facility] ([place]) Comment: Interpretive Data [...] Interpretive Data was last revised on 2018. Testing performed by: [facility], [place], [address] Chol/HDL ratio 4 WEINE Gosia NASH ([place]) Comment:Testing performed by : [facility], [place], [address] Blood 06/10/2025 9:57 AM CDT 06/10/2025 10:11 AM CDT Narrative PRITESH NAS[facility] ([place]) - 06/10/2025 10:46 AM CDT Has the patient been fasting for 8 hours or more?->Yes Terrance Trejo MD LAB BLOOD ORDERABLES nal Result WEIJAHAIRA NASH ([place]) 1 [facility] [place] [address] * (ABNORMAL) Comprehensive metabolic panel (06/10/2025 9:57 AM CDT) Sodium 138 135 - 145 mmol/L [facility] ([place]) Potassium, pl 5.1(H) 3.3 - 4.9 mmol/L [facility] ([place]) Chloride 105 97 - 110 mmol/L [facility] ([place]) CO2 22 22 - 32 mmol/L [facility] ([place]) Anion gap 11 2 - 15 mmol/L [facility] ([place]) BUN 38(H) 6 - 25 mg/dL [facility] ([place]) Creatinine 1.67(H) 0.80 - 1.30 mg/dL [facility] ([place]) Glucose 185 70 - 199 mg/dL [facility] ([place]) [...] Current interpretive data was last revised 2022. Calcium 9.1 8.5 - 10.3 mg/dL [facility] ([place]) Bilirubin, total 0.3 0.1 - 1.2 mg/dL [facility] ([place]) Protein, pl 6.7 6.5 - 8.5 g/dL [facility] ([place]) Albumin 3.9 3.5 - 5.0 g/dL [facility] ([place]) Alk phos 77 40 - 130 Units/L [facility] ([place]) ALT 8 7 - 55 Units/L [facility] ([place]) AST 11 10 - 50 Units/L [facility] ([place]) Blood 06/10/2025 9:57 AM CDT 06/10/2025 10:11 AM CDT Narrative [facility] ([place]) - 06/10/2025 10:46 AM CDT Has the patient fasted?->Yes us Terrance Trejo MD LAB BLOOD ORDERABLES Fi nal Result [facility] ([place]) 1 [facility] Department [place] [address] * (ABNORMAL) eGFR (03/21/2025 2:00 PM CDT) [...] was last reviewed 2021. Testing performed by: [facility], One [facility], [place], [address] Blood 03/21/2025 2:00 PM CDT 03/21/2025 2:16 PM CDT us Dipak Funez MD LAB BLOOD ORDERABLES Jahaira nicholson Result PRITESH NASH ([place]) 1 [facility] Department [place] [address] * Differential, auto (03/21/2025 2:00 PM CDT) Pathologist [facility] Neutrophil abs 4.11 1.50 - 6.50 K/cumm PRITESH [facility] ([place]) Comment:Testing performed by : [facility] [address], Medical Office [address], [place] [address] Imm gran abs 0.01 0.00 - 0.10 K/cumm PRITESH [facility] ([place]) Comment:Testing performed by : [facility] [address], Medical Office [address], [place] [address] Lymphocyte abs 1.11 0.80 - 3.30 K/cumm PRITESH [facility] ([place]) Comment:Testing performed by : [facility] [address], Medical Office [address], [place] [address] Monocyte abs 0.46 0.20 - 0.80 K/cumm [facility] ([place]) Comment:Testing performed by : [facility] [place], [address], Medical Office [address], [place] [address] Eosinophil abs 0.07 0.00 - 0.50 K/cumm [facility] ([place]) Comment:Testing performed by : [facility] [address], Medical Office [facility] [address], [place] [address] Basophil abs 0.02 0.00 - 0.10 K/cumm [facility] ([place]) Comment:Testing performed by : [facility] [address], Medical Office [facility] [address], [place] [address] Neutrophil pct 71.1 % [facility] ([place]) Comment: Interpretive Data Percent cell count reference ranges are not reported, since discordance with absolute values may lead to misinterpretation of CBC data. Current Interpretive Data was last revised on 2022. Testing performed by: [facility] [address], Medical Office [facility] B [facility] [address], [place] [address] Imm gran pct 0.2 % [facility] ([place]) Comment: Interpretive Data Percent cell count reference ranges are not reported, since discordance with absolute values may lead to misinterpretation of CBC data. Current Interpretive Data was last revised on 2022. Testing performed by: [facility] [address], Medical Office [facility] B [facility] [address], [place] [address] Lymphocyte pct 19.2 % [facility] ([place]) Comment: Interpretive Data Percent cell count reference ranges are not reported, since discordance with absolute values may lead to misinterpretation of CBC data. Current Interpretive Data was last revised on 2022. Testing performed by: [facility] [address], Medical Office [address], [place] [address] Monocyte pct 8.0 % [facility] ([place]) Comment: Interpretive Data Percent cell count reference ranges are not reported, since discordance with absolute values may lead to misinterpretation of CBC data. Current Interpretive Data was last revised on 2022. Testing performed by: [facility] [address], Medical Office [address], [place] [address] Eosinophil pct 1.2 % COLBY [facility] ([place]) Comment: Interpretive Data Percent cell count reference ranges are not reported, since discordance with absolute values may lead to misinterpretation of CBC data. Current Interpretive Data was last revised on 2022. Testing performed by: [facility] [address], Medical Office [address], [place] [address] Basophil pct 0.3 % PRITESH [facility] ([place]) Comment: Interpretive Data Percent cell count reference ranges are not reported, since discordance with absolute values may lead to misinterpretation of CBC data. Current Interpretive Data was last revised on 2022. Testing performed by: [facility] [address], Medical Office [facility] [address], [place] [address] Blood 03/21/2025 2:00 PM CDT 03/21/2025 2:04 PM CDT us iDpak Funez MD LAB BLOOD ORDERABLES Jahaira l Result PRITESH NASH ([place]) 1 [facility] Department [place] [address] * (ABNORMAL) CBC with auto differential (03/21/2025 2:00 PM CDT) WBC 5.78 3.80 - 9.90 K/cumm PRITESH [facility] ([place]) Comment:Testing performed by : [facility] [address], Medical Office [facility] [address], [place] [address] Hgb 12.7(L) 13.0 - 17.5 g/dL PRITESH [facility] ([place]) Comment:Testing performed by : [facility] [address], Medical Office [address], [place] [address] Hct 38.9 38.9 - 50.3 % PRITESH [facility] ([place]) Comment:Testing performed by : [facility] [address], Medical Office [address], [place] [address] Plt 216 150 - 400 K/cumm [facility] ([place]) Comment:Testing performed by : [facility] [address], Medical Office [address], [place] [address] MPV 10.9 9.1 - 12.3 fL [facility] ([place]) Comment:Testing performed by : [facility] [address], Medical Office [address], [place] [address] RBC 4.15(L) 4.30 - 5.80 M/cumm [facility] ([place]) Comment:Testing performed by : [facility] [address], Medical Office [address], [place] [address] MCV 93.7 81.3 - 96.4 fL [facility] ([place]) Comment:Testing performed by : [facility] [address], Medical Office [address], [place] [address] MCH 30.6 27.1 - 33.3 pg [facility] ([place]) Comment:Testing performed by : [facility] [address], Medical Office [address], [place] [address] MCHC 32.6 32.3 - 35.7 g/dL [facility] ([place]) Comment:Testing performed by : [facility] [address], Medical Office [facility] [address], [place] [address] RDW CV 12.2 11.1 - 14.9 % [facility] ([place]) Comment:Testing performed by : [facility] [address], Medical Office [facility] [address], [place] [address] RDW SD 42.6 35.7 - 48.1 fL [facility] ([place]) Comment:Testing performed by : [facility] [address], Medical Office [facility] [address], [place] [address] Blood 03/21/2025 2:00 PM CDT 03/21/2025 2:04 PM CDT us Dipak Funez MD LAB BLOOD ORDERABLES Jahaira nicholson Result [facility] ([place]) 1 [facility] Department [place] [address] * Lactate dehydrogenase (LD) (03/21/2025 2:00 PM CDT) Pathologist [facility] Lactate dehydrogenase (LDH) 121 100 - 250 Units/L Comment:Testing performed by : [place], [address] Blood 03/21/2025 2:00 PM CDT 03/21/2025 2:16 PM CDT us Dipak Funez MD LAB BLOOD ORDERABLES Jahaira l Result [facility] ([place]) 1 [facility] Department [place] [address] * (ABNORMAL) Comprehensive metabolic panel (03/21/2025 2:00 PM CDT) [facility] Sodium 134(L) 135 - 145 mmol/L Comment:Testing performed by : [place], [address] Potassium, pl 5.0(H) 3.3 - 4.9 mmol/L [facility] ([place]) Comment:Testing performed by : [place], [address] Chloride 98 97 - 110 mmol/L [facility] ([place]) Comment:Testing performed by : [place], [address] CO2 24 22 - 32 mmol/L [facility] ([place]) Comment:Testing performed by : [place], [address] Anion gap 13 2 - 15 mmol/L [facility] ([place]) Comment:Testing performed by : [place], [address] BUN 37(H) 6 - 25 mg/dL [facility] ([place]) Comment:Testing performed by : [place], [address] Creatinine 1.73(H) 0.80 - 1.30 mg/dL [facility] ([place]) Comment:Testing performed by : [facility], [place], [address] Glucose 365(H) 70 - 199 mg/dL CERNER [...] was last revised 2022. Testing performed by: [place], [address] Calcium 8.5 8.5 - 10.3 mg/dL [facility] ([place]) Comment:Testing performed by : [place], [address] Bilirubin, total 0.3 0.1 - 1.2 mg/dL [facility] ([place]) Comment:Testing performed by : [facility], [place], [address] Protein, pl 6.2(L) 6.5 - 8.5 g/dL [facility] ([place]) Comment:Testing performed by : [place], [address] Albumin 3.5 3.5 - 5.0 g/dL [facility] ([place]) Comment:Testing performed by : [place], [address] Alk phos 82 40 - 130 Units/L [facility] ([place]) Comment:Testing performed by : [place], [address] ALT 9 7 - 55 Units/L [facility] ([place]) Comment:Testing performed by : [place], [address] AST 7(L) 10 - 50 Units/L [facility] ([place]) Comment:Testing performed by : [place], [address] Blood 03/21/2025 2:00 PM CDT 03/21/2025 2:16 PM CDT us Dipak Funez MD LAB BLOOD ORDERABLES Jahaira l Result PRITESH NASH [place] 1 [facility] [place] [address] * CT Chest Abdomen Pelvis W Contrast [...] Dipak Hurtado M.D. RB: JORGE Report ID: [id number] Reading Location: [place] [address] Procedure Note Dipak Hurtado MD - 03/21/2025 [...] Dipak Hurtado M.D. RB: JORGE Report ID: [id number] Reading Location: [place] [address] us Dipak Funez MD IMG CT PROCEDURES Final R esult * Albumin Creatinine Ratio, Urine (12/04/2024 9:53 AM ELECTRICAL TESTS SUPERVISOR) Albumin Ur <12.0 mg/L Comment: Interpretive Data No reference range established. Current interpretive data was last revised 2019. Testing performed by: [address] [address] Creatinine Ur 58.6 mg/dL PRITESH NAS[facility] ([place]) Comment: Interpretive Data No reference range established. Current interpretive data was last revised 2019. Testing performed by: [address] [address] Albumin Creatinine Ratio, Ur <20 1 - 29 mg/g PRITESH [facility] ([place]) Comment:Testing performed by : [address] [address] Urine 12/04/2024 9:53 AM ELECTRICAL TESTS SUPERVISOR 12/04/2024 4:44 PM ELECTRICAL TESTS SUPERVISOR us Terrance Trejo MD LAB URINE ORDERABLES Fi nal Result PRITESH NASH ([place]) 1 [facility] [place] [address] * (ABNORMAL) Diabetic Eye Exam (10/12/2023) 10/12/2023 us Generic External Data Provider [facility] SIMIN Arias Final Result * COLONOSCOPY (03/25/2022 10:05 AM CDT) Anatomical Region Laterality Modality Other Narrative Procedure Note Lele Villalobos MD - 03/25/2022 10:05 AM CDT [facility] Patient Name: Judd Harrington Procedure Date: 03/25/2022 10:05 AM Date of : 1940 Admit Type: Outpatient Age: 81 Gender: Male Attending MD: Lele Villalobos M.D. Room: [facility] ENDOSCOPY ROOM 2 Note Status: Finalized Patient [...] scope was passed under direct vision. TheColonoscope [id number] was introduced through the anus and advanced [...] 10:05 AM Procedure Code(s): --- Professional --- 56401, Colonoscopy, flexible; with removal of tumor(s), polyp(s), [...] colon K64.9, Unspecified hemorrhoids CPT copyright 2020 [employer]. All rights reserved. The codes documented in this report are preliminary and upon game room attendant reviewmay be revised to meet current compliance requirements. Recognized by the [employer] for promoting quality in endoscopy Lele Villalobos MD ENDOSCOPY PROCEDURES Final Re sult * DIABETES FOOT EXAM (09/18/2019) Diabetic Foot Exam Abnormal Historical Provider HEALTH MAINTENANCE Final Result from Last 3 Months or Most Recently Relevant to Health Maintenance Insurance [facility] HMO/PPO Address: [facility] [address] [place] [address] [employer] MED[employer]ARE MEDICARE [facility] Address: [address] [address] [place] [address] [facility] H[facility]/PPO Address: [address] [address] [place] [address] [facility] MEDIC[facility] Advance Directives For more information, please contact: [phone] * Full Code (Latest Code Status on File) Date Activated Date Inactivated Comments 03/13/2024 7:41 PM 03/14/2024 4:52 PM * Full Code Date Activated Date Inactivated Comments 03/25/2022 9:54 AM 03/25/2022 5:15 PM * Full Code Date Activated Date Inactivated Comments 03/25/2022 9:54 AM 03/25/2022 9:54 AM Care Teams [employer]ia Print Operator Relationship Specialty Start Date End Date Terrance Trejo MD PCP - General 12/31/16 Martin Montes MD Wildlife Technician Dermatology 10/30/21 Jered Muñoz MD Medical Oncologist/Director [facility] Hematology and Oncology 02/10/23
== END ==
LOC: ANHLAB 15:17
PROVIDERS: Visit Provider Plastic Surgery
DX: C44.722 Squamous cell carcinoma of skin of right lower limb, including hip (principal)
CPT/HCPCS: 88305